=== PATIENT | female | born 1945 | race Caucasian/White ===

== ENCOUNTER 2017-12-19 17:40 | Inpatient (IN) | payer OTHER ==
[2017-12-19] MEDS ORDERED: ONDANSETRON 4 MG/2 ML VIAL ONE (18:36)
[2017-12-19] MEDS ORDERED: FENTANYL CITR 100 MCG/2 ML ONE (18:36)
[2017-12-19] MEDS ORDERED: FAMOTIDINE 20 MG/2 ML VIAL IV ONE (18:37)
[2017-12-19] MEDS ORDERED: PANTOPRAZOLE 40 MG INJ ONE (18:37)
[2017-12-19] MEDS ORDERED: NA CHLORIDE 0.9% 1,000 ML ONE (18:37)
--- NOTE | 2017-12-19 19:24 | RAD REPORT ---
EXAM DESCRIPTION: RAD - Chest Single View - 12/19/2017 7:09 pm CLINICAL HISTORY: Cough, abdominal distension COMPARISON: June 2011 TECHNIQUE: AP portable chest image was obtained 1907 hours . FINDINGS: No focal mass, consolidation or failure finding. Baseline fibrotic lung pattern is present . A few calcified granulomas are seen. Heart and vasculature are normal. No measurable pleural effusi on and no pneumothorax. No acute bony abnormality seen. No acute aortic findings suspected. IMPRESSION: Baseline fibrotic lung pattern. No acute cardiopulmonary process.
[2017-12-19 19:46] LABS: ALT/SGPT 18 U/L (12-78); AST/SGOT 18 U/L (15-37); Albumin 1.7 g/dL (3.4-5.0); Alkaline Phosphatase 156 U/L (45-117); BUN Blood Urea Nitrogen 20 mg/dL (7-18); Bicarbonate 19 mmol/L (21-32); Bilirubin Direct 0.4 mg/dL (0-0.2); Bilirubin Total 0.7 mg/dL (0.2-1.0); Glucose Level 129 mg/dL (74-106); Lipase 41 U/L (73-393); NT PRO-BNP 2939 pg/mL (<125); Potassium 3.2 mmol/L (3.5-5.1); Protein, Total 6.5 g/dL (6.4-8.2); Sodium Level 142 mmol/L (136-145); Troponin (Emerg Dept Use Only) < 0.02 ng/mL (0.0-0.045)
[2017-12-19 19:52] LABS: Magnesium 1.1 mg/dL (1.8-2.4)
--- NOTE | 2017-12-19 20:28 | EDPHYS ---
Physician Documentation [facility] Name: Coreen Chu Age: 72 yrs Sex: Female : 1945 Arrival Date: 12/19/2017 Time: 17:43 Bed 6 Private MD: JAMIE Physician Rashaad Dominique HPI: 12/19 18:22 This 72 yrs old Female presents to ER via Wheelchair with complaints of roberto Fever, Feet Swelling, Wound Check. 18:22 The patient reports fever, that was measured at 100 degrees Fahrenheit. Onset: The roberto symptoms/episode began/occurred 3 day(s) ago. Modifying factors: there are no obvious modifying factors. Associated signs and symptoms: Pertinent positives: abdominal pain. Historical: - Allergies: 17:53 Codeine; aj1 - Home Meds: 17:53 Novolog Sub-Q [Active]; aj1 - PMHx: 17:53 Rheumatoid Arthritis; Diabetes - NIDDM; Hyperlipidemia; Hypertension; chronic pain; aj1 "kidney problems"; - Immunization history:: Flu vaccine is not up to date. - Social history:: Smoking status: Patient uses tobacco products, denies chronic smoking, but will smoke occasionally. - Ebola Screening: : Patient denies travel to an Ebola-affected area in the 21 days before illness onset. ROS: 18:23 Constitutional: Negative for fever, chills, and weight loss, Eyes: Negative for injury, roberto pain, redness, and discharge, ENT: Negative for injury, pain, and discharge, Neck: Negative for injury, pain, and swelling, Cardiovascular: Negative for chest pain, palpitations, and edema, Back: Negative for injury and pain, : Negative for injury, bleeding, discharge, and swelling, Skin: Negative for injury, rash, and discoloration, Neuro: Negative for headache, weakness, numbness, tingling, and seizure, Psych: Negative for depression, anxiety, suicide ideation, homicidal ideation, and hallucinations, Allergy/Immunology: Negative for hives, rash, and allergies, Endocrine: Negative for neck swelling, polydipsia, polyuria, polyphagia, and marked weight changes, Hematologic/Lymphatic: Negative for swollen nodes, abnormal bleeding, and unusual bruising. 18:23 Respiratory: Positive for cough, shortness of breath. 18:23 Abdomen/GI: Positive for abdominal pain, diarrhea, abdominal cramps. 18:23 MS/extremity: Positive for swelling, of the right foot and left foot. Exam: 18:23 Constitutional: This is a well developed, well nourished patient who is awake, alert, roberto and in no acute distress. Head/Face: Normocephalic, atraumatic. Eyes: Pupils equal round and reactive to light, extra-ocular motions intact. Lids and lashes normal. Conjunctiva and sclera are non-icteric and not injected. Cornea within normal limits. Periorbital areas with no swelling, redness, or edema. ENT: Nares patent. No nasal discharge, no septal abnormalities noted. Tympanic membranes are normal and external auditory canals are clear. Oropharynx with no redness, swelling, or masses, exudates, or evidence of obstruction, uvula midline. Mucous membranes moist. Neck: Trachea midline, no thyromegaly or masses palpated, and no cervical lymphadenopathy. Supple, full range of motion without nuchal rigidity, or vertebral point tenderness. No Meningismus. Chest/axilla: Normal chest wall appearance and motion. Nontender with no deformity. No lesions are appreciated. Cardiovascular: Regular rate and rhythm with a normal S1 and S2. No gallops, murmurs, or rubs. Normal PMI, no JVD. No pulse deficits. Back: No spinal tenderness. No costovertebral tenderness. Full range of motion. Female : Normal external genitalia. Skin: Warm, dry with normal turgor. Normal color with no rashes, no lesions, and no evidence of cellulitis. Neuro: Awake and alert, GCS 15, oriented to person, place, time, and situation. Cranial nerves II-XII grossly intact. Motor strength 5/5 in all extremities. Sensory grossly intact. Cerebellar exam normal. Normal gait. Psych: Awake, alert, with orientation to person, place and time. Behavior, mood, and affect are within normal limits. 18:23 Respiratory: mild respiratory distress is noted, Respirations: no acute changes, Breath sounds: decreased breath sounds, that are mild, are located in both bases, rhonchi, + upper airway congestion. Vital Signs: 17:53 BP 126 / 65; Pulse 127; Resp 20; Temp 97.5(TE); Pulse Ox 96% on R/A; Weight 52.62 kg aj1 (R); Height 5 ft. 5 in. (165.10 cm) (R); Pain 10/10; 19:20 BP 122 / 64; Pulse 124; Resp 16; Pulse Ox 94% ; ao 20:07 BP 128 / 74; Pulse 126; Resp 20; Pulse Ox 98% on R/A; ao 21:30 BP 122 / 64; Pulse 123; Resp 20; Pulse Ox 96% on R/A; ao 22:46 BP 119 / 53; Pulse 109; Resp 16; Pulse Ox 96% on R/A; Pain 0/10; ao 17:53 Body Mass Index 19.30 (52.62 kg, 165.10 cm) aj1 MDM: 18:11 [facility]. [facility] 18[facility]25 Data reviewed: vital signs, nurses notes, lab test result(s), EKG, radiologic studies, [facility] scan, plain films. 12/19 18:22 Order name: Basic Metabolic Panel; Complete Time: 20:03 [facility] 12/19 18:22 Order name: CBC with Diff; Complete Time: 20:38 [facility] 12/19 18:22 Order name: LFT's; Complete Time: 20:03 [facility] 12/19 18:22 Order name: Magnesium; Complete Time: 20:03 [facility] 12/19 18:22 Order name: NT PRO-BNP; Complete Time: 20:03 [facility] 12/19 18:22 Order name: PT-INR; Complete Time: 20:38 [facility] 12/19 18:22 Order name: Troponin (emerg Dept Use Only); Complete Time: 20:03 [facility] 12/19 18:22 Order name: Lipase; Complete Time: 20:03 [facility] 12/19 18:22 Order name: TSH; Complete Time: 20:03 [facility] 12/19 18:22 Order name: Lactate; Complete Time: 21:46 [facility] 12/19 18:22 Order name: Procalcitonin; Complete Time: 21:19 [facility] 12/19 18:22 Order name: Urine Culture [facility] 12/19 18:22 Order name: Blood Culture Adult (2) [facility] 12/19 18:22 Order name: Type And Screen [facility] 12/19 18:22 Order name: XRAY Chest (1 view); Complete Time: 20:03 [facility] 12/19 18:22 Order name: CT Chest, Abdomen, Pelvis - W/Contrast: oral for sure, iv iv if possible [facility] 12/19 20:34 Order name: Stool Culture [facility] 12/19 20:34 Order name: Fecal Leukocyte Stain [facility] 12/19 20:34 Order name: CDIFF [facility] 12/19 20:50 Order name: Urine Dipstick--Ancillary (enter results); Complete Time: 21:19 mw2 12/19 21:39 Order name: CT; Complete Time: 21:46 EDMS 12/19 18:22 Order name: EKG; Complete Time: 18:36 [facility] 12/19 18:22 Order name: Cardiac monitoring; Complete Time: 20:03 [facility] 12/19 18:22 Order name: EKG - Nurse/Tech; Complete Time: 18:37 [facility] 12/19 18:22 Order name: IV Saline Lock; Complete Time: 20:03 [facility] 12/19 18:22 Order name: Labs collected and sent; Complete Time: 20:03 [facility] 12/19 18:22 Order name: O2 Per Protocol; Complete Time: 20:02 [facility] 12/19 18:22 Order name: O2 Sat Monitoring; Complete Time: 20:02 [facility] 12/19 18:22 Order name: Urine Dipstick-Ancillary (obtain specimen); Complete Time: 20:48 [facility] 12/19 18:22 Order name: Penn; Complete Time: 20:39 [facility] Administered Medications: 20:00 Drug: NS 0.9% 1000 ml Route: IV; Rate: 1 bolus; Site: right upper arm; ao 22:45 Follow up: IV Status: Completed infusion; IV Intake: 1000ml ao 20:00 Drug: ProTONIX 40 mg Route: IVP; Site: right upper arm; ao 22:15 Follow up: Response: No adverse reaction ao 20:00 Drug: Zofran 4 mg Route: IVP; Site: right upper arm; ao 22:16 Follow up: Response: No adverse reaction ao 20:02 Drug: fentaNYL (PF) 25 mcg Route: IVP; Site: right upper arm; ao 22:15 Follow up: Response: No adverse reaction ao 20:46 Drug: Magnesium Sulfate 2 grams Route: IVPB; Infused Over: 2 hrs; Site: right upper arm;ao 22:44 Follow up: IV Status: Completed infusion; IV Intake: 50ml ao 20:47 Drug: NS 0.9% with KCl 20 mEq/L 1000 ml Route: IV; Rate: 125 ml/hr; Site: right upper ao arm; 22:45 Follow up: IV Status: Completed infusion; Infusion continued upon admission ao 22:00 Drug: Rocephin - (cefTRIAXone) 1 grams Route: IVPB; Infused Over: 30 mins; Site: right ao upper arm; 22:44 Follow up: IV Status: Completed infusion ao 22:08 Drug: Flagyl 500 mg Volume: 100 ml; Route: IVPB; Rate: 200 ml/hr; Infused Over: 30 ao mins; Site: right upper arm; 22:44 Follow up: IV Status: Completed infusion ao 22:43 Drug: levofloxacin 500 mg Volume: 100 ml; Route: IVPB; Infused Over: 60 mins; Site: ao right upper arm; 22:44 Follow up: IV Status: Infusion continued upon admission ao Disposition: 12/19/17 20:27 Hospitalization ordered by Addie Rai for Inpatient Admission. Preliminary diagnosis are Fever, unspecified, Weakness, Unspecified kidney failure, Hypomagnesemia, Hypokalemia, Anemia, unspecified, Cystitis, Left sided colitis with complications - sigmoid, recto sigmoid. - Bed requested for Telemetry/MedSurg (Inpatient). - Status is Inpatient Admission. ao - Condition is Fair. - Problem is new. - Symptoms have improved. UTI on Admission? Yes Signatures: Dispatcher [employer] EDMS Jane Yun RN RN ajRashaad Campo MD MD cha Ortiz, Alex, RN RN ao [place], MyKena mw2 Corrections: (The following items were deleted from the chart) 20:39 20:27 Hospitalization Ordered by Addie Rai MD for Inpatient Admission. Preliminary roberto diagnosis is Fever, unspecified; Weakness; Unspecified kidney failure; Hypomagnesemia; Hypokalemia. Bed requested for Telemetry/MedSurg (Inpatient). Status is Inpatient Admission. Condition is Fair. Problem is new. Symptoms have improved. UTI on Admission? No. roberto 20:50 20:39 12/19/2017 20:27 Hospitalization Ordered by Addie Rai MD for Inpatient roberto Admission. Preliminary diagnosis is Fever, unspecified; Weakness; Unspecified kidney failure; Hypomagnesemia; Hypokalemia; Anemia, unspecified. Bed requested for Telemetry/MedSurg (Inpatient). Status is Inpatient Admission. Condition is Fair. Problem is new. Symptoms have improved. UTI on Admission? No. roberto 20:55 20:50 12/19/2017 20:27 Hospitalization Ordered by Addie Rai MD for Inpatient mw2 Admission. Preliminary diagnosis is Fever, unspecified; Weakness; Unspecified kidney failure; Hypomagnesemia; Hypokalemia; Anemia, unspecified; Cystitis. Bed requested for Telemetry/MedSurg (Inpatient). Status is Inpatient Admission. Condition is Fair. Problem is new. Symptoms have improved. UTI on Admission? Yes. [facility] 21:51 20:55 12/19/2017 20:27 Hospitalization Ordered by Addie Rai MD for Inpatient roberto Admission. Preliminary diagnosis is Fever, unspecified; Weakness; Unspecified kidney failure; Hypomagnesemia; Hypokalemia; Anemia, unspecified; Cystitis. Bed requested for Telemetry/MedSurg (Inpatient). Status is Inpatient Admission. Condition is Fair. Problem is new. Symptoms have improved. UTI on Admission? Yes. mw2 23:53 21:51 12/19/2017 20:27 Hospitalization Ordered by Addie Rai MD for Inpatient ao Admission. Preliminary diagnosis is Fever, unspecified; Weakness; Unspecified kidney failure; Hypomagnesemia; Hypokalemia; Anemia, unspecified; Cystitis; Left sided colitis with complications - sigmoid, recto sigmoid. Bed requested for Telemetry/MedSurg (Inpatient). Status is Inpatient Admission. Condition is Fair. Problem is new. Symptoms have improved. UTI on Admission? Yes. roberto
--- NOTE | 2017-12-19 20:28 | ER ---
Nurse's Notes [facility] Name: Coreen Chu Age: 72 yrs Sex: Female : 1945 Arrival Date: 12/19/2017 Time: 17:43 Bed 6 Private MD: Diagnosis: Fever, unspecified;Weakness;Unspecified kidney failure;Hypomagnesemia;Hypokalemia;Anemia, unspecified;Cystitis;Left sided colitis with complications-sigmoid, recto sigmoid Presentation: 12/19 17:45 Presenting complaint: Patient states: "I'm diabetic and I haven't had my medicine since aj1 last Saturday" Patient sister states "She had surgery on June 18 and she had fungal sepsis and bacterial sepsis and she has these 2 gaping holes, they were doing wound care at the half-way, she's been putting medication on it, but it isn't getting better. She has diarrhea constantly for months. She had a surgery to have a tumor out, but she hasn't had any follow up with the service team leader. The last 2 days she's had fever, and I'm worried that she has a urinary tract infection. And she has swelling in her hands and her feet.". Transition of care: patient was not received from another setting of care. Onset of symptoms is unknown. Risk Assessment: Do you want to hurt yourself or someone else? Patient reports no desire to harm self or others. Initial Sepsis Screen: Does the patient meet any 2 criteria? HR > 90 bpm. No. Patient's initial sepsis screen is negative. Does the patient have a suspected source of infection? Yes: Dysuria/Frequency/Urgency/UTI Skin breakdown/wound. Care prior to arrival: None. 17:45 Method Of Arrival: Wheelchair aj1 17:55 Acuity: HELENA 2 aj1 Triage Assessment: 17:53 General: Appears in no apparent distress. comfortable, Behavior is calm, cooperative, aj1 appropriate for age. Pain: Complains of pain in buttocks, right foot and left foot Pain currently is 10 out of 10 on a pain scale. Neuro: Level of Consciousness is awake, alert, obeys commands. Cardiovascular: Patient's skin is warm and dry. Respiratory: Airway is patent Respiratory effort is even, unlabored, Respiratory pattern is regular, symmetrical. Historical: - Allergies: 17:53 Codeine; aj1 - Home Meds: 17:53 Novolog Sub-Q [Active]; aj1 - PMHx: 17:53 Rheumatoid Arthritis; Diabetes - NIDDM; Hyperlipidemia; Hypertension; chronic pain; aj1 "kidney problems"; - Immunization history:: Flu vaccine is not up to date. - Social history:: Smoking status: Patient uses tobacco products, denies chronic smoking, but will smoke occasionally. - Ebola Screening: : Patient denies travel to an Ebola-affected area in the 21 days before illness onset. Screenin:01 Abuse screen: Denies threats or abuse. Denies injuries from another. Nutritional sg screening: No deficits noted. Tuberculosis screening: No symptoms or risk factors identified. Never had TB. Fall Risk None identified. Assessment: 18:58 General: Appears in no apparent distress. well groomed, well developed, well nourished, sg Behavior is calm, cooperative, appropriate for age. Pain: Complains of pain in left foot and right foot and buttocks Quality of pain is described as aching, throbbing. Neuro: Level of Consciousness is awake, alert, obeys commands, Oriented to person, place, time, Pipeline Welder are equal bilaterally Moves all extremities. Full function Speech is normal, Facial symmetry appears normal. Cardiovascular: Edema is 1+ to left foot, left toes, right foot and right toes. Respiratory: Airway is patent Respiratory effort is even, unlabored, Respiratory pattern is regular, symmetrical. GI: No signs and/or symptoms were reported involving the gastrointestinal system. : Reports incontinence, since 3-4 weeks. EENT: No signs and/or symptoms were reported regarding the EENT system. Derm: Skin is intact, is fragile, is thin, Skin is dry, Skin is pale, Skin temperature is cool Bruising that is green, yellow, on right foot and left foot. Musculoskeletal: Circulation, motion, and sensation intact. Range of motion: limited in all extremities. 19:20 Reassessment: Zechariah at bedside for IV placement. ak1 19:20 General: Appears in no apparent distress. comfortable, well groomed, well developed, ao well nourished, Behavior is calm, cooperative, appropriate for age. Pain:. Neuro: Level of Consciousness is awake, alert, obeys commands, Oriented to person, place, time, Pipeline Welder are equal bilaterally Moves all extremities. Full function Speech is normal, Facial symmetry appears normal. Cardiovascular: Capillary refill < 3 seconds Patient's skin is warm and dry. Respiratory: Airway is patent Respiratory effort is even, unlabored, Respiratory pattern is regular, symmetrical. GI: Abdomen is non-distended. : EENT: No signs and/or symptoms were reported regarding the EENT system. Derm: No signs and/or symptoms reported regarding the dermatologic system. Musculoskeletal: No signs and/or symptoms reported regarding the musculoskeletal system. 19:55 Reassessment: Started 22 G right FA. ao Vital Signs: 17:53 BP 126 / 65; Pulse 127; Resp 20; Temp 97.5(TE); Pulse Ox 96% on R/A; Weight 52.62 kg aj1 (R); Height 5 ft. 5 in. (165.10 cm) (R); Pain 10/10; 19:20 BP 122 / 64; Pulse 124; Resp 16; Pulse Ox 94% ; ao 20:07 BP 128 / 74; Pulse 126; Resp 20; Pulse Ox 98% on R/A; ao 21:30 BP 122 / 64; Pulse 123; Resp 20; Pulse Ox 96% on R/A; ao 22:46 BP 119 / 53; Pulse 109; Resp 16; Pulse Ox 96% on R/A; Pain 0/10; ao 17:53 Body Mass Index 19.30 (52.62 kg, 165.10 cm) aj ED Course: 17:43 Patient arrived in ED. as 17:53 Arm band placed on Patient placed in an exam room. aj1 17:55 Triage completed. aj1 18:10 Rashaad Dominique MD is Attending Physician. roberto 18:26 Teo Montes, RN is Primary Nurse. sg 18:37 EKG done, by ED staff, reviewed by Rashaad Dominique MD. 3 18:46 Radiology exam delayed due to IV insertion attempt and/or patient not having ls3 appropriate IV at this time. 18:58 Missed attempt(s): 24 gauge in right forearm. Bleeding controlled, band aid applied, sg catheter tip intact. 19:09 XRAY Chest (1 view) In Process Unspecified. EDMS 20:26 Addie Rai MD is Hospitalizing Provider. roberto 20:39 Penn cath inserted, using sterile technique, 16 Fr., by me, balloon inflated, to ak1 gravity drainage, urine specimen collected. Patient tolerated well. 21:00 Cleaned of incontinence. Linen changed. ak1 21:[address] via stretcher. vm2 21:15 CT completed. Patient tolerated procedure well. Patient moved back from CT. vm2 21:35 Cleaned of incontinence. Linen changed. ak1 22:47 Patient has correct armband on for positive identification. Fall risk band placed. Bed ao in low position. 23:52 No provider procedures requiring assistance completed. Patient admitted, IV remains in ao place. Administered Medications: 20:00 Drug: NS 0.9% 1000 ml Route: IV; Rate: 1 bolus; Site: right upper arm; ao 22:45 Follow up: IV Status: Completed infusion; IV Intake: 1000ml ao 20:00 Drug: ProTONIX 40 mg Route: IVP; Site: right upper arm; ao 22:15 Follow up: Response: No adverse reaction ao 20:00 Drug: Zofran 4 mg Route: IVP; Site: right upper arm; ao 22:16 Follow up: Response: No adverse reaction ao 20:02 Drug: fentaNYL (PF) 25 mcg Route: IVP; Site: right upper arm; ao 22:15 Follow up: Response: No adverse reaction ao 20:46 Drug: Magnesium Sulfate 2 grams Route: IVPB; Infused Over: 2 hrs; Site: right upper arm;ao 22:44 Follow up: IV Status: Completed infusion; IV Intake: 50ml ao 20:47 Drug: NS 0.9% with KCl 20 mEq/L 1000 ml Route: IV; Rate: 125 ml/hr; Site: right upper ao arm; 22:45 Follow up: IV Status: Completed infusion; Infusion continued upon admission ao 22:00 Drug: Rocephin - (cefTRIAXone) 1 grams Route: IVPB; Infused Over: 30 mins; Site: right ao upper arm; 22:44 Follow up: IV Status: Completed infusion ao 22:08 Drug: Flagyl 500 mg Volume: 100 ml; Route: IVPB; Rate: 200 ml/hr; Infused Over: 30 ao mins; Site: right upper arm; 22:44 Follow up: IV Status: Completed infusion ao 22:43 Drug: levofloxacin 500 mg Volume: 100 ml; Route: IVPB; Infused Over: 60 mins; Site: ao right upper arm; 22:44 Follow up: IV Status: Infusion continued upon admission ao Intake: 22:44 IV: 50ml; Total: 50ml. ao 22:45 IV: 1000ml; Total: 1050ml. ao Outcome: 20:27 Decision to Hospitalize by Provider. roberto 23:52 Admitted to Med/surg accompanied by nurse, room 416, Report called to Primary Nurse ao 23:52 Condition: stable 23:52 Instructed on the need for admit. 23:53 Patient left the ED. ao Signatures: Dispatcher [employer] EDJane Ocasio RN RN Teo Syed RN Rashaad Burkett MD MD cha Martinez, Amelia as Krenek, Amber RN RN [email or web address] Shaun Ballard RN RN Mandy White Yocasta Cintron 3 Srinivasan Rivas 3
[2017-12-19 20:32] LABS: Absolute Lymphocytes (CBC) 2.9 K/uL (0.7-4.9); Absolute Monocytes 0.8 K/uL (0.1-1.3); Absolute Neutrophil 7.8 K/uL (1.8-8.0); Basophils % 0.1 % (0-1.3); Eosinophils % 0.2 % (0-4.4); Hematocrit 28.3 % (36.0-45.0); MCH 29.6 pg (27.0-35.0); MCV 93.3 fL (80-100); MPV 8.1 fL (7.6-11.3); Monocytes % 6.7 % (3.3-12.3); RBC Red Blood Cell Count 3.03 M/uL (3.86-4.86)
[2017-12-19 20:33] LABS: Protime INR 1.18
[2017-12-19] MEDS ORDERED: NS KCL 20MEQ 1,000 ML IV ONE (20:42)
[2017-12-19] MEDS ORDERED: Magnesium Sulfate 2gm IVPB 2 G/50 ML BAG IV ONE (20:43)
[2017-12-19 20:59] LABS: Urine Blood 2+ (NEG); Urine Glucose NEGATIVE (NEG); Urine Protein 3+ (NEG); Urine Specific Gravity 1.025 (1.005-1.030); Urine pH 6.5 (5.0-7.0)
--- NOTE | 2017-12-19 21:39 | RAD REPORT ---
EXAM DESCRIPTION: CT - Chest Abdomen Pelvis W Cont - 12/19/2017 9:11 pm CLINICAL HISTORY: Cough, chest pain, abdomen pain COMPARISON: Chest films same date TECHNIQUE: Following dynamic enhancement using 100 milliliters nonionic IV contrast, axial imaging o f the chest, abdomen and pelvis was performed. Biphasic technique was utilized through the abdomen. Oral contrast was administered. All CT scans are performed using dose optimization technique as appropriate and may include automated exposure control or mA/KV adjustment according to patient size. FINDINGS: Fibrotic lung changes are present. No focal infiltrate or mass. Calcified granuloma seen p osterior mid right lung field. No pleural effusion, pleural thickening or pneumothorax. No significan t aortic or pulmonary arterial tree finding. Mediastinal and hilar regions show no mass or abnormal l ymphadenopathy. No chest wall mass or axillary lymphadenopathy. Mediastinal and hilar granulomatous c alcifications are present. The liver, spleen and pancreas show no suspicious findings. Cholecystectomy clips are present. No sonya iary tree dilatation. Symmetric renal function is seen with no mass or hydronephrosis. No pyelonephri tis or acute renal parenchymal process seen. Hemphill of the ureter are more prominent than typically se en. There is no significant delay or asymmetry of function. Urinary bladder is contracted around a Fo pavel catheter. Air within the lumen is probably from the catheter placement. Pelvic floor assessment i s limited due to the dense spray artifact from the right hip prosthesis. No gastric dilatation or gastric wall thickening seen. Gastric assessment is limited due to the limit ed amount contrast or content within the lumen of the stomach. No dilated small bowel loops. No acute appendicitis findings. Hemphill of the transverse colon are mildly prominent. This may be a peristalsis artifact. Wall thickening or edema is evident in the sigmoid colon and rectum. There is edema and st randing in the presacral fatty tissues. There is stranding along the posterior and left lateral al n of the lower sacrum and coccyx. No air or foreign body seen. Disc and bony degenerative changes are present. No free air or pneumatosis. No destructive bone process seen. Dense arterial tree calcifications are present. IMPRESSION: No significant CT chest finding. Wall thickening and edema of the rectum and sigmoid colon with significant edema and stranding in the presacral fatty tissues. Rectosigmoid colitis is suspected. Patient gives a history of some sort of GI mass that was biopsied but not resected or fully treated. Malignancy of the rectum cannot be excluded. Hemphill of each ureter are thicker and more prominent than usually seen. Ureteritis is certainly a poss ibility. No pyelonephritis seen. Urinary bladder cannot be assessed. Bladder is contracted around a Penn catheter. Prosser artifact fro m the hip limits further the ability to assess the bladder. Cystitis is certainly a possibility.
[2017-12-19] MEDS ORDERED: CEFTRIAXONE/SWI 1gm 1 GM/10 ML SYR ONE (21:58)
[2017-12-19] MEDS ORDERED: METRONIDAZOLE 500mg IVPB 500 MG/100 ML BAG IV ONE (21:58)
[2017-12-19] MEDS ORDERED: Levofloxacin500mg IV 500 MG/100 ML BAG IV ONE (22:15)
--- NOTE | 2017-12-19 22:41 | P.HP ---
Certification for Inpatient Patient admitted to: Inpatient With expected LOS: >2 Midnights Practitioner: I am a practitioner with admitting privileges, knowledge of patient current condition, hospital course, and medical plan of care. Services: Services provided to patient in accordance with Admission requirements found in Title 42 Section 412.3 of the Code of Federal Regulations Patient History Date of Service: 12/19/17 Reason for admission: Rectosigmoid colitis History of Present Illness: Ms Chu is a 72-year-old woman with history of hypertension, diabetes mellitus types 2, who in May of this year had a colonic mass removed in [place]. Since so she has been having diarrhea. Her surgical wound never healed and they are still open. The patient denied any nausea, vomiting or diarrhea. No history of fever or chills. Lab work significantly abnormal, remarkable for elevated WBC count 11.4 K hypomagnesemia 1.[address] abdomen and pelvis consistent with signs of rectosigmoid colitis Allergies No Known Allergies Allergy (Unverified 02/12/12 21:51) Home medications list reviewed: Yes - Past Medical/Surgical History -: Diabetes mellitus -: Hypertension -: colonic tumor resection - Family History Family History: Reviewed- Non-Contributory - Social History Smoking Status: Never smoker Alcohol use: No Caffeine use: Yes Place of Residence: Home Review of Systems 10-point ROS is otherwise unremarkable Physical Examination - Physical Exam General: Alert, In no apparent distress HEENT: Atraumatic, PERRLA, Mucous membr. moist/pink, EOMI, Sclerae nonicteric Neck: Supple, 2+ carotid pulse no bruit, No LAD, Without JVD or thyroid abnormality Respiratory: Clear to auscultation bilaterally, Normal air movement Cardiovascular: Regular rate/rhythm, Normal S1 S2 Gastrointestinal: No tenderness, Hyperactive Musculoskeletal: No tenderness Integumentary: No rashes, Skin lesion (Surgical wounds still open in her abdomen ) Neurological: Normal gait, Normal speech, Normal strength at 5/5 x4 extr, Normal tone, Normal affect Lymphatics: No axilla or inguinal lymphadenopathy - Studies Laboratory Data (last 24 hrs) 12/19/17 19:50: PT 14.0 H, INR 1.18 12/19/17 19:50: WBC 11.4 H, Hgb 9.0 L, Hct 28.3 L, Plt Count 382 12/19/17 18:55: Sodium 142, Potassium 3.2 L, BUN 20 H, Creatinine 1.30, Glucose 129 H, Magnesium 1.1 L*, Total Bilirubin 0.7, AST 18, ALT 18, Alkaline Phosphatase 156 H, Lipase 41 L Assessment and Plan - Problems (Diagnosis) (1) Colitis Current Visit: Yes Status: Acute (2) Hypertension Current Visit: Yes Status: Acute (3) Diabetes mellitus Current Visit: Yes Status: Acute - Advance Directives Does patient have a Living Will: No Does patient have a Durable POA for Healthcare: No
[2017-12-20] MEDS: NA CHLORIDE 0.9% 1,000 ML IV SCH ×3 (00:24→20:02)
[2017-12-20] MEDS ORDERED: ONDANSETRON 4 MG/2 ML VIAL IV PRN (00:24)
[2017-12-20 01:21] VITALS: BMI 19.3
[2017-12-20] MEDS: TRAMADOL HCL 50 MG TAB PO PRN ×2 (02:07→16:48)
[2017-12-20 07:11] LABS: Absolute Lymphocytes (CBC) 2.4 K/uL (0.7-4.9); Absolute Monocytes 0.6 K/uL (0.1-1.3); Absolute Neutrophil 2.5 K/uL (1.8-8.0); Basophils % 0.2 % (0-1.3); Eosinophils % 1.2 % (0-4.4); Hematocrit 21.1 % (36.0-45.0); Lymphocytes % 43.4 % (15.3-44.8); MCH 29.9 pg (27.0-35.0); MCV 93.5 fL (80-100); MPV 8.1 fL (7.6-11.3); Monocytes % 10.3 % (3.3-12.3); RBC Red Blood Cell Count 2.25 M/uL (3.86-4.86)
--- NOTE | 2017-12-20 07:29 | EKG ---
Test Date: 2017-12-19 Test Time: 18:33:16 Classroom Technology Technician: USHA MEASUREMENT RESULTS: Intervals: Rate: 126 IA: 124 QRSD: 86 QT: 310 QTc: 448 [place]: P: 89 IA: 124 QRS: 40 T: 87 INTERPRETIVE STATEMENTS: Sinus tachycardia with fusion complexes Nonspecific ST and T wave abnormality Abnormal ECG Compared to ECG 02/12/2012 22:02:48 Fusion complex(es) now present ST (T wave) deviation now present Sinus rhythm no longer present Electronically Signed On 12-20-17 07:27:39 CDT by Ambrose Betancur
[2017-12-20] MEDS: INSULIN -REGULAR HUMAN 50 UNIT/0.5 ML ML SQ SCH ×4 (07:30→20:30)
[2017-12-20 07:42] LABS: Magnesium 1.5 mg/dL (1.8-2.4)
[2017-12-20 07:56] LABS: Potassium 2.8 mmol/L (3.5-5.1)
[2017-12-20] MEDS ORDERED: INFLUENZA VACCINE (for 3y+) 0.5 ML DOSE IMVAC ONE (08:00)
[2017-12-20] MEDS: METRONIDAZOLE 500mg IVPB 500 MG/100 ML BAG IV SCH ×2 (08:56→16:49)
[2017-12-20] MEDS: CIPROFLOXACIN 400mg IV 400 MG/200 ML BAG IV SCH ×2 (08:56→20:00)
[2017-12-20] MEDS: KCL 20 MEQ/100 mL IVPB 20 MEQ/100 ML BAG IV SCH ×2 (08:56→11:30)
--- NOTE | 2017-12-20 13:46 | EKG ---
Test Date: 2017-12-20 Test Time: 09:34:01 Sloop Captain: DOLORES MEASUREMENT RESULTS: Intervals: Rate: 88 WI: 132 QRSD: 98 QT: 384 QTc: 464 [place]: P: 60 WI: 132 QRS: 33 T: 78 INTERPRETIVE STATEMENTS: Sinus rhythm with frequent premature ventricular complexes and premature atrial complexes Otherwise normal ECG Compared to ECG 12/19/2017 18:33:16 Atrial premature complex(es) now present Ventricular premature complex(es) now present Sinus tachycardia no longer present Fusion complex(es) no longer present ST (T wave) deviation no longer present Electronically Signed On 12-20-17 13:45:19 CDT by Ambrose Betancur
[2017-12-20] MEDS ORDERED: NA CHLORIDE 0.9% 250 ML ONE ×2 (14:07→19:43)
[2017-12-20] MEDS ORDERED: Magnesium Sulfate 2gm IVPB 2 G/50 ML BAG IV ONE (15:00)
--- NOTE | 2017-12-20 17:58 | P.PN ---
Subjective Date of Service: 12/20/17 Chief Complaint: Rectosigmoid colitis In seen and examined at bedside. Sister at bedside. Case discussed with nursing staff. Patient reports feeling better. Abdominal pain has now almost resolved and she is hungry. She would really like to eat. Review of Systems As noted above Physical Examination - Vital Signs Temperature: 97.4 F Blood Pressure: 134/62 Pulse: 88 Respirations: 18 Pulse Ox (%): 97 - Physical Exam General: Alert, In no apparent distress, Oriented x3 HEENT: Atraumatic, PERRLA, EOMI Neck: Supple, JVD not distended Respiratory: Clear to auscultation bilaterally, Normal air movement Cardiovascular: Regular rate/rhythm, Normal S1 S2 Gastrointestinal: Hyperactive, Tenderness (Mild tenderness) Musculoskeletal: No tenderness Integumentary: Skin lesion (Open wound on abdomen) Neurological: Normal speech, Normal tone, Normal affect - Studies Laboratory Data (last 24 hrs) 12/19/17 19:50: PT 14.0 H, INR 1.18 12/19/17 19:50: WBC 11.4 H, Hgb 9.0 L, Hct 28.3 L, Plt Count 382 12/19/17 18:55: Sodium 142, Potassium 3.2 L, BUN 20 H, Creatinine 1.30, Glucose 129 H, Magnesium 1.1 L*, Total Bilirubin 0.7, AST 18, ALT 18, Alkaline Phosphatase 156 H, Lipase 41 L Assessment And Plan - Current Problems (Diagnosis) (1) Diarrhea Current Visit: Yes Status: Acute Plan: Per sister and patient, patient underwent a colon resection for a colon tumor removal on June 18, 2017 and. This was done and [place]. From the hospital, patient went to rehab/skilled nursing in June of 2017. Her stay was complicated by fungal sepsis and bacterial sepsis. She was in the hospital in and out from the rehab center in [place]. Patient just recently moved to [place] 1 week ago to be with her sister as she thought she was not getting adequate care at her rehab center over there. Per patient and sister, she has had constant diarrhea ever since May, prior to her surgery. She was also noted to be C. diff positive in the rehab back in July. Stool sample sent for C. diff testing here, positive for C. diff. Over the/ parasite testing is still pending. She continues to be on IV Flagyl, will continue. Monitor stools Qualifiers: Diarrhea type: presumed infectious Qualified Code(s): R19.7 - Diarrhea, unspecified (2) Colitis Onset Date: 12/20/17 Current Visit: Yes Status: Acute Plan: Colitis noted on imaging of the abdomen. Patient NPO, continue IV fluids Continue IV antibiotics (3) Diabetes mellitus Onset Date: 12/20/17 Current Visit: Yes Status: Acute Plan: Accu-Cheks and sliding scale insulin. Will adjust insulin units as needed. (4) Hypertension Onset Date: 12/20/17 Current Visit: Yes Status: Acute Plan: Stable, continue home medications. (5) Anemia Current Visit: Yes Status: Acute Plan: Patient with hemoglobin of 6.8 this morning. She will get 2 units PRBCs. Posttransfusion hemoglobin check. Will continue to monitor. No evidence of overt bleeding at this time. (6) Hypokalemia Current Visit: Yes Status: Acute Plan: Repleted per hypokalemia protocol Check a.m. labs - Plan Her sister, she would like to get help on disposition on this patient. She would like to consider longterm versus home health. Will put physical therapy consult for evaluation. Social work consult.
[2017-12-20] MEDS ORDERED: POTASSIUM 25 MEQ EFFERV TAB PO ONE (19:23)
[2017-12-20] MEDS: JUVEN PACKET PO SCH (20:02)
--- NOTE | 2017-12-20 21:49 | RAD REPORT ---
EXAM DESCRIPTION: RAD - Lumbar Spine 3 Views - 12/20/2017 5:54 pm CLINICAL HISTORY: Back pain FINDINGS: Cement has been placed into fractures involving T12, L1 and L3 vertebral bodies. Mild to moderate compression fracture involves the L5 vertebral body. It may be subacute. MRI would b e helpful for confirmation if clinically indicated. Mild compression fracture involves the L2 vertebral body. It has more of the appearance of being commercial appraiser franky than acute appearance. The bones are osteoporotic. No dislocation is seen
[2017-12-21] MEDS: NA CHLORIDE 0.9% 1,000 ML IV SCH ×3 (01:24→20:55)
[2017-12-21] MEDS: METRONIDAZOLE 500mg IVPB 500 MG/100 ML BAG IV SCH ×3 (01:24→16:43)
[2017-12-21] MEDS ORDERED: VANCOMYCIN 1 GM in NA CHLORIDE 0.9% 250 ML IVPB ONE (02:00)
[2017-12-21] MEDS ORDERED: NA CHLORIDE 0.9% 250 ML ONE (02:37)
[2017-12-21] MEDS ORDERED: VANCOMYCIN 1 GM/VIAL ONE (02:37)
[2017-12-21 04:57] LABS: Hematocrit 30.2 % (36.0-45.0)
[2017-12-21 05:04] LABS: Magnesium 1.7 mg/dL (1.8-2.4); Potassium 3.5 mmol/L (3.5-5.1)
[2017-12-21] MEDS ORDERED: POTASSIUM CL SA 10 MEQ TAB PO ONE (05:31)
[2017-12-21] MEDS ORDERED: MAGNESIUM SULFATE 1 gm IVPB 1 GM/100 ML BAG IV ONE (05:32)
[2017-12-21] MEDS: INSULIN -REGULAR HUMAN 50 UNIT/0.5 ML ML SQ SCH ×4 (07:30→20:55)
[2017-12-21] MEDS: JUVEN PACKET PO SCH ×3 (08:36→21:00)
[2017-12-21] MEDS: CIPROFLOXACIN 400mg IV 400 MG/200 ML BAG IV SCH ×2 (09:19→20:54)
[2017-12-21] MEDS ORDERED: PROCHLORPERAZINE 5 MG TAB PO PRN (12:48)
--- NOTE | 2017-12-21 18:03 | PN ---
History: Currently, the patient lying in bed. She looks comfortable. She is feeling lousy. She flaherty s no chest pain, but she has abdominal pain. There was no nausea or vomiting earlier. Appetite is p oor. Physical Examination: Vital Signs: Currently, blood pressure is 126/90, respiratory rate 20, pulse 95, temperature 97.9. She is saturating 97 on room air. General: She is alert and oriented. Looks cachectic. Without any distress. HEENT: Atraumatic, normocephalic. PERRLA. Oral mucosa is dry. Neck: Supple. No JVD. No carotid bruits. Chest: Clear to auscultation with good air entry. Heart: Regular rate and rhythm. S1, S2 normal. No gallop or murmur. Abdomen: Hyperactive with diffuse mild tenderness. There is no rebound or guarding. Extremities: No clubbing, cyanosis, or edema. No calf tenderness. Neurologic: Grossly intact. Laboratory Data: Today showed CBC with a hemoglobin 10.3. Chemistry within normal except for carbon dioxide of 19 and chloride of 117. GFR of 52, glucose 113, calcium 7.8, magnesium 1.7. Assessment And Plan: 1.Diarrhea, secondary to Clostridium difficile colitis. The patient currently on IV Flagyl. I will add oral vancomycin 125 mg every 6 hours. The patient had history of colon resection on June 18, with prolonged [facility]. Two samples for ova and parasite stil l pending. 2.Colitis secondary to Clostridium difficile, on imaging. The patient is still on fluids, IV antibi otic with Flagyl, and we will add oral vancomycin. She is as well on Cipro for the colitis. 3.Diabetes mellitus. The patient on insulin sliding scale. Her glucose in the range of 138 to 225, probably worse as patient started on a soft mechanical diet. I will resume her Actos and NovoLog 12 units IV for her home medications. 4.Hypertension, well controlled. Continue home medication. 5.Anemia, most likely secondary to gastrointestinal bleed, with transfusion hemoglobin up to 10.3, b ut patient will not be candidate for colonoscopy or EGD at this point given her active infection. 6.Hypokalemia, replaced. 7.No deep vein thrombosis prophylaxis, most likely due to gastrointestinal bleed. MARYLU/ANISHA Voice ID: [id number] Report ID: [id number]
[2017-12-21] MEDS: VANCOMYCIN ORAL SOLN 250 MG/5 ML OSYR PO SCH (18:14)
[2017-12-22] MEDS: VANCOMYCIN ORAL SOLN 250 MG/5 ML OSYR PO SCH ×4 (00:38→17:38)
[2017-12-22] MEDS: METRONIDAZOLE 500mg IVPB 500 MG/100 ML BAG IV SCH ×2 (00:39→09:58)
[2017-12-22] MEDS: NA CHLORIDE 0.9% 1,000 ML IV SCH ×2 (01:54→11:31)
[2017-12-22 07:06] LABS: Absolute Lymphocytes (CBC) 2.3 K/uL (0.7-4.9); Absolute Monocytes 0.9 K/uL (0.1-1.3); Absolute Neutrophil 4.2 K/uL (1.8-8.0); Basophils % 0.2 % (0-1.3); Eosinophils % 0.9 % (0-4.4); Hematocrit 30.5 % (36.0-45.0); Lymphocytes % 31.3 % (15.3-44.8); MCV 91.7 fL (80-100); MPV 7.8 fL (7.6-11.3); Monocytes % 11.7 % (3.3-12.3); RBC Red Blood Cell Count 3.32 M/uL (3.86-4.86)
[2017-12-22] MEDS: INSULIN LISPRO 100 UNIT/1 ML SQ SCH ×3 (07:30→16:30)
[2017-12-22] MEDS: INSULIN -REGULAR HUMAN 50 UNIT/0.5 ML ML SQ SCH ×4 (07:30→20:41)
[2017-12-22 07:31] LABS: Albumin 1.4 g/dL (3.4-5.0); Bilirubin Total 0.5 mg/dL (0.2-1.0); Magnesium 1.8 mg/dL (1.8-2.4); Potassium 3.5 mmol/L (3.5-5.1); Protein, Total 5.2 g/dL (6.4-8.2)
[2017-12-22] MEDS ORDERED: POTASSIUM 25 MEQ EFFERV TAB PO ONE (09:00)
[2017-12-22] MEDS ORDERED: MAGNESIUM SULFATE 1 gm IVPB 1 GM/100 ML BAG IV ONE (09:00)
[2017-12-22] MEDS: JUVEN PACKET PO SCH ×2 (09:00→20:37)
[2017-12-22] MEDS: CIPROFLOXACIN 400mg IV 400 MG/200 ML BAG IV SCH ×2 (09:58→20:36)
[2017-12-22] MEDS: PIOGLITAZONE 15 MG TAB PO SCH (09:58)
[2017-12-22] MEDS: TRAMADOL HCL 50 MG TAB PO PRN ×2 (12:29→20:37)
[2017-12-22] MEDS ORDERED: HYDRALAZINE HCL 20 MG/ML VIAL IV PRN (13:15)
[2017-12-22] MEDS ORDERED: INFLUENZA VACCINE (for 3y+) 0.5 ML DOSE IMVAC ONE (16:00)
--- NOTE | 2017-12-22 18:49 | PN ---
Subjective: Currently, the patient is lying in bed. She looks comfortable. She continues to have a bdominal pain. There was no bowel movement anymore. No diarrhea. She had no nausea, no vomiting wh en she could not tolerate food. Temperature maximum was at 98.7. There is no family at the bedside. She wants a PICC line instead of her IV. Review of Systems: Otherwise negative. Objective: Vital Signs: Blood pressure 144/67, respiratory rate 18, pulse 122, temperature 98.5. General: The patient is alert, oriented x3. Does not look in any distress. HEENT: Atraumatic, normocephalic. PERRLA. Oral mucosa is moist. Neck: Supple. No JVD. No carotid bruits. Chest: Clear to auscultation. Good air entry. Heart: Regular rate and rhythm. S1, S2 normal. No gallop. Tachy. Abdomen: Soft with diffuse tenderness to palpation. There is no guarding or rebound. Extremities: No clubbing, cyanosis, or edema. Diffuse bruising noted, but there is no calf tenderne ss. Neurologic: Grossly intact. Laboratory Data: Today showed CBC with a hemoglobin of 10.3, which is stable from yesterday. Normal platelet. Normal white blood cells. Chemistry within normal except for GFR of 71, chloride 116, ca rbon dioxide of 20, glucose in the range of 92-256. Assessment And Plan: 1.Clostridium difficile colitis. Diarrhea much better today since we started the patient on oral va ncomycin yesterday. Continue with that. The patient already on IV Flagyl as well. The patient has extensive history of hospitalization, post colectomy done in June 18, 2017 in [place]. The [facility]. Her stool ova and parasite still pending, but her fecal leukocyte stai n were negative. 2.UTI: The patient's urine was positive for Klebsiella pneumoniae and E. coli, sensitivity to Cipro for both organisms "so will continue Cipro for now.". 3.Wound culture. Abdominal wound culture was positive for Klebsiella pneumoniae and MRSA. Again, K lebsiella pneumoniae is sensitive to Cipro. We will continue with that. I will discontinue IV Flagy l and add Bactrim to cover her MRSA. The patient already on oral vancomycin. Would also cover MRSA. 4.Diabetes mellitus. Her glucose in the range of 92-236. She is back on her home medications with Actos and NovoLog 12 units before meals. 5.Hypertension. Well controlled today. Continue home medication. We will start p.r.n. hydralazine . 6.Anemia, most likely secondary to gastrointestinal bleed. H and H stable since patient received tr ansfusion on Saturday. The patient will need EGD and colonoscopy down the road when her colitis resolv ed. 7.Hypokalemia, replaced. 8.Deep vein thrombosis prophylaxis. The patient has GI bleed. 9.Keep patient on clear liquid diet for now. MARYLU/ANISHA Voice ID: [id number] Report ID: [id number]
[2017-12-22] MEDS: SMZ./TMP. 800/160 MG TABLET PO SCH (20:37)
[2017-12-23] MEDS: VANCOMYCIN ORAL SOLN 250 MG/5 ML OSYR PO SCH ×4 (00:09→17:17)
[2017-12-23] MEDS: TRAMADOL HCL 50 MG TAB PO PRN (02:35)
[2017-12-23] MEDS: NA CHLORIDE 0.9% 1,000 ML IV SCH ×3 (02:43→18:24)
[2017-12-23 06:31] LABS: Magnesium 1.8 mg/dL (1.8-2.4); Potassium 3.9 mmol/L (3.5-5.1)
[2017-12-23] MEDS: INSULIN -REGULAR HUMAN 50 UNIT/0.5 ML ML SQ SCH ×4 (07:30→21:00)
[2017-12-23] MEDS ORDERED: MAGNESIUM SULFATE 1 gm IVPB 1 GM/100 ML BAG IV ONE (08:07)
[2017-12-23] MEDS ORDERED: POTASSIUM CL SA 10 MEQ TAB PO ONE (08:08)
[2017-12-23] MEDS: JUVEN PACKET PO SCH ×3 (09:00→21:49)
[2017-12-23] MEDS: CIPROFLOXACIN 400mg IV 400 MG/200 ML BAG IV SCH (09:42)
[2017-12-23] MEDS: SMZ./TMP. 800/160 MG TABLET PO SCH ×2 (09:43→21:49)
[2017-12-23] MEDS: INSULIN LISPRO 100 UNIT/1 ML SQ SCH ×3 (09:43→16:30)
[2017-12-23] MEDS: PIOGLITAZONE 15 MG TAB PO SCH (09:43)
[2017-12-23] MEDS: VANCOMYCIN/NS 1 gm 1 GM/250 ML BAG IV SCH (13:00)
--- NOTE | 2017-12-23 17:39 | P.PN ---
Subjective Date of Service: 12/24/17 Chief Complaint: Rectosigmoid colitis In seen and examined at bedside. No family at bedside. Case discussed with nursing staff. Patient reports feeling better. Abdominal pain has now almost resolved and she is tolerating clear liquid diet.. Review of Systems As noted above Physical Examination - Vital Signs Temperature: 97.9 F Blood Pressure: 93/53 Pulse: 110 Respirations: 16 Pulse Ox (%): 91 - Physical Exam General: Alert, In no apparent distress, Oriented x3 HEENT: Atraumatic, PERRLA, EOMI Neck: Supple, JVD not distended Respiratory: Clear to auscultation bilaterally, Normal air movement Cardiovascular: Regular rate/rhythm, Normal S1 S2 Gastrointestinal: Normal bowel sounds, No tenderness, Other (Surgical wound on abdomen, draining) Musculoskeletal: No tenderness Integumentary: No rashes Neurological: Normal speech, Normal tone, Normal affect - Studies Microbiology Data (last 24 hrs): 12/19/17 19:50 Blood - Blood Aerobic Blood Culture - Final Staph Hominis 12/19/17 19:50 Blood - Blood Gram Stain - Final 12/19/17 19:50 Blood - Blood Anaerobic Blood Culture - Final Staphylococcus Hominis 12/19/17 19:50 Blood - Blood Gram Stain - Final Medications List Reviewed: Yes Assessment And Plan - Current Problems (Diagnosis) (1) Diarrhea Current Visit: Yes Status: Acute Plan: Infectious, Clostridium difficile positive diarrhea. Much improved diarrhea since patient has been on oral vancomycin. We will continue oral vancomycin and IV Flagyl. Still pending ova and parasite studies. Qualifiers: Diarrhea type: infectious Qualified Code(s): A09 - Infectious gastroenteritis and colitis, unspecified (2) Colitis Onset Date: 12/20/17 Current Visit: Yes Status: Acute Plan: Colitis noted on imaging of the abdomen. On a clear liquid diet, advance diet as tolerated. Continue IV antibiotics Will likely need EGD/colonoscopy outpatient (3) Diabetes mellitus Onset Date: 12/20/17 Current Visit: Yes Status: Acute Plan: Accu-Cheks and sliding scale insulin. Will adjust insulin units as needed. (4) Hypertension Onset Date: 12/20/17 Current Visit: Yes Status: Acute Plan: Stable, continue home medications. (5) Anemia Current Visit: Yes Status: Acute Plan: Patient with hemoglobin of 6.8 on admission, status post 2 units PRBCs. Her hemoglobin has remained stable since then. Monitor for any overt bleeding and monitor H&H. (6) Hypokalemia Current Visit: Yes Status: Acute Plan: Repleted per hypokalemia protocol Check a.m. labs (7) VRE (vancomycin resistant enterococcus) culture positive Current Visit: Yes Status: Acute Plan: Patient with urine studies positive for VRE. Dr. Tomlinson infectious disease consulted Pending PICC line placement. Patient was refusing last night. I spoke with patient and patient's sister. They would like to go ahead with the PICC line now all for IV antibiotics. Sister needs help with disposition for a short- term facility. Social work involved (8) Surgical wound, non healing Current Visit: Yes Status: Acute Plan: Surgical wound from prior colon resection surgery with drainage. Cultures positive for MRSE and Klebsiella sensitive to Bactrim. Continue PO Bactrim (9) Bacteremia Current Visit: Yes Status: Acute Plan: Continue IV antibiotics - Plan Her sister, she would like to get help on disposition on this patient. She would like to consider [facility] versus home health. Will put physical therapy consult for evaluation. Social work consult.
[2017-12-24] MEDS: VANCOMYCIN ORAL SOLN 250 MG/5 ML OSYR PO SCH ×5 (00:39→23:51)
--- NOTE | 2017-12-24 03:12 | P.PN ---
Date of Service: 12/24/17 Patient requesting to not have IV antibiotics at discharge-refusing PICC line right now. VRE could be treated with oral Zyvox-which would treat all gram positives growing in patients cx. (Plt ct adequate) All other Gram negative organisms can be treated with sulfa(Bactrim DS orally)
[2017-12-24] MEDS: NA CHLORIDE 0.9% 1,000 ML IV SCH ×2 (04:24→14:24)
--- NOTE | 2017-12-24 07:00 | EKG ---
Test Date: 2017-12-23 Test Time: 17:45:43 Ethics Manager: GHADA MEASUREMENT RESULTS: Intervals: Rate: 118 DC: 136 QRSD: 84 QT: 324 QTc: 454 [place]: P: 89 DC: 136 QRS: 89 T: -85 INTERPRETIVE STATEMENTS: Sinus tachycardia Low voltage QRS Septal infarct, age undetermined T wave abnormality, consider inferior ischemia T wave abnormality, consider anterolateral ischemia Abnormal ECG Compared to ECG 12/20/2017 09:34:01 Low QRS voltage now present Myocardial infarct finding now present T-wave abnormality now present Possible ischemia now present Sinus rhythm no longer present Atrial premature complex(es) no longer present Ventricular premature complex(es) no longer present Electronically Signed On 12-24-17 06:59:39 CDT by Andrea Le
[2017-12-24] MEDS: INSULIN LISPRO 100 UNIT/1 ML SQ SCH ×3 (07:30→16:30)
[2017-12-24] MEDS: INSULIN -REGULAR HUMAN 50 UNIT/0.5 ML ML SQ SCH ×4 (07:30→20:50)
[2017-12-24 07:36] LABS: Magnesium 1.8 mg/dL (1.8-2.4); Potassium 5.3 mmol/L (3.5-5.1)
[2017-12-24] MEDS: JUVEN PACKET PO SCH ×3 (09:00→20:49)
[2017-12-24] MEDS: ACETIC ACID 0.25% IRRIG IRR SCH (09:39)
[2017-12-24] MEDS: SMZ./TMP. 800/160 MG TABLET PO SCH ×2 (09:39→20:49)
[2017-12-24] MEDS: PIOGLITAZONE 15 MG TAB PO SCH (09:40)
[2017-12-24] MEDS: VANCOMYCIN/NS 1 gm 1 GM/250 ML BAG IV SCH (17:00)
--- NOTE | 2017-12-24 17:35 | P.PN ---
Subjective Date of Service: 12/24/17 Chief Complaint: Rectosigmoid colitis Patient seen and examined at bedside. Sister at bedside. Case discussed with nursing staff. Patient reports feeling better. Abdominal pain has now almost resolved and she is tolerating clear liquid diet.. Review of Systems As noted Physical Examination - Vital Signs Temperature: 97.9 F Blood Pressure: 93/53 Pulse: 110 Respirations: 16 Pulse Ox (%): 91 - Physical Exam General: Alert, In no apparent distress, Oriented x3 HEENT: Atraumatic, PERRLA, EOMI Neck: Supple, JVD not distended Respiratory: Clear to auscultation bilaterally, Normal air movement Cardiovascular: Regular rate/rhythm, Normal S1 S2 Gastrointestinal: Normal bowel sounds, No tenderness Musculoskeletal: No tenderness Integumentary: No rashes Neurological: Normal speech, Normal tone, Normal affect - Studies Medications List Reviewed: Yes Assessment And Plan - Current Problems (Diagnosis) (1) Diarrhea Current Visit: Yes Status: Acute Plan: Infectious, Clostridium difficile positive diarrhea. Much improved diarrhea since patient has been on oral vancomycin. We will continue oral vancomycin and IV Flagyl. Still pending ova and parasite studies. Qualifiers: Diarrhea type: infectious Qualified Code(s): A09 - Infectious gastroenteritis and colitis, unspecified (2) Colitis Onset Date: 12/20/17 Current Visit: Yes Status: Acute Plan: Colitis noted on imaging of the abdomen. On a clear liquid diet, advance diet as tolerated. Continue IV antibiotics Will likely need EGD/colonoscopy outpatient (3) Diabetes mellitus Onset Date: 12/20/17 Current Visit: Yes Status: Acute Plan: Accu-Cheks and sliding scale insulin. Will adjust insulin units as needed. (4) Hypertension Onset Date: 12/20/17 Current Visit: Yes Status: Acute Plan: Stable, continue home medications. (5) Anemia Current Visit: Yes Status: Acute Plan: Patient with hemoglobin of 6.8 on admission, status post 2 units PRBCs. Her hemoglobin has remained stable since then. Monitor for any overt bleeding and monitor H&H. (6) Hypokalemia Current Visit: Yes Status: Acute Plan: Repleted per hypokalemia protocol Check a.m. labs (7) VRE (vancomycin resistant enterococcus) culture positive Current Visit: Yes Status: Acute Plan: Patient with urine studies positive for VRE. Dr. Davi infectious disease consulted Pending PICC line placement. Patient was refusing last night. I spoke with patient and patient's sister. They would like to go ahead with the PICC line now all for IV antibiotics. Sister needs help with disposition for a short- term facility. Social work involved (8) Surgical wound, non healing Current Visit: Yes Status: Acute Plan: Surgical wound from prior colon resection surgery with drainage. Cultures positive for MRSE and Klebsiella sensitive to Bactrim. Continue PO Bactrim (9) Bacteremia Current Visit: Yes Status: Acute Plan: Continue IV antibiotics - Plan Her sister, she would like to get help on disposition on this patient. She would like to consider shelter versus home health. Will put physical therapy consult for evaluation. Social work consult.
--- NOTE | 2017-12-24 20:42 | CON ---
History Of Present Illness: This is a 72-year-old female. I was consulted for abdominal wound. The patient has surgical history for a colonic tumor resection, continues to have open wounds since 2017. The patient used to be in [place] where she had a colonic mass removed, has significant hi story of diabetes mellitus, hypertension. The patient also has a wound to her right foot secondary t o bunion . The patient denies any headache, nausea, vomiting, chest pain, abdominal pain, constipation, or diarrhea. She complains about liquid diet and would like to get some real food. Th e patient also has been diagnosed with C. diff colitis, for which she is in isolation. Past Medical History: Diabetes mellitus, hypertension, colonic tumor resection. Social History: Nonsmoker, nondrinker. Family History: Noncontributory. Medications: Tylenol, acetic acid, apresoline, Humalog insulin, NovoLog insulin, Zofran, Actos, Comp azine, Ultram, Bactrim, vancomycin p.o. and vancomycin IV. Review of Systems: A 10-point review was performed. Physical Examination: General: This is a 72-year-old female, lying in bed, not in any acute cardiopulmonary distress. Vital signs: Temperature 99, pulse 103, respirations 18, blood pressure 99/62. HEENT: Unremarkable. Neck: Supple. Lungs: Basal crackles. Heart: S1, S2. Regular. Abdomen: Soft. Bowel sounds present. Abdominal wound, 2 x 2.3 x 1.5; midepigastric wound 0.6 x 0.5 x 0.4. EXTREMITIES: Right lower extremity first metatarsal medial wound noted . Laboratory Data: Shows WBC 7.4, hemoglobin 10.3, platelets are 221. Chemistry shows sodium 138, pot assium 5.3, chloride 110, bicarb 18, BUN of 9, creatinine 0.8, glucose is 89. Microbiology Data: Shows wound culture growing Klebsiella pneumoniae and MRSA. Urine shows E. coli, Klebsiella oxytoca, and Enterococcus faecalis, which is VRE. Blood cultures growing Staphylococcus hominis. Assessment And Plan: Bacteremia secondary to Staphylococcus hominis in a 72-year-old female with sig nificant history of colonic tumor, status post resection; urinary tract infection with polymicrobial bacterial growth of Enterococcus faecalis vancomycin-resistant enterococci, Klebsiella oxytoca, and E scherichia coli. Abdominal wound is growing Klebsiella pneumoniae and methicillin-resistant Staph au reus. We will continue IV antibiotic total course of 4 weeks. Consider treating vancomycin-resistan t enterococci with ampicillin or Unasyn, which should cover Escherichia coli and Klebsiella oxytoca. Also, staph hominis which is only sensitive to vancomycin and rifampin, we will recommend to start the patient on vancomycin to cover staph hominis and methicillin-resistant Staphylococcus a ureus. Consider admitting the patient to long-term acute care for total of 4 weeks of IV antibiotics with vancomycin and Unasyn. REMBERTO/ANISHA Voice ID: [id number] Report ID: [id number]
[2017-12-25] MEDS: NA CHLORIDE 0.9% 1,000 ML IV SCH ×4 (00:24→18:37)
[2017-12-25] MEDS: VANCOMYCIN ORAL SOLN 250 MG/5 ML OSYR PO SCH ×3 (05:50→17:22)
--- NOTE | 2017-12-25 06:59 | RAD REPORT ---
EXAM DESCRIPTION: RAD - Chest Single View - 12/25/2017 1:56 am CLINICAL HISTORY: PICC line placement A preliminary report was provided at the time of the study and reviewed prior to final report. COMPARISON: December 19 FINDINGS: Portable chest was obtained following placement of a left upper extremity PICC line. The c atheter tip is in the azygos vein. Complete left hemithorax opacification is present from pleural effusion and atelectasis. Trachea is m idline.
--- NOTE | 2017-12-25 07:03 | RAD REPORT ---
EXAM DESCRIPTION: RAD - Chest Single View - 12/25/2017 3:21 am CLINICAL HISTORY: PICC line placement or repositioning A preliminary report was provided at the time of the study and reviewed prior to final report. COMPARISON: December 25 TECHNIQUE: AP portable chest image was obtained 0304 hours . FINDINGS: PICC line has been repositioned and now tracts across the midline into the right subclavia n jugular vein junction. Continued left hemithorax opacification. IMPRESSION: Left upper extremity PICC line has been repositioned with tip now in the right subclavia n jugular vein junction. No change to the left hemithorax opacification.
--- NOTE | 2017-12-25 07:04 | RAD REPORT ---
EXAM DESCRIPTION: RAD - Chest Single View - 12/25/2017 5:42 am CLINICAL HISTORY: PICC line placement A preliminary report was provided at the time of the study and reviewed prior to final report. COMPARISON: December 25 imaging FINDINGS: Portable chest was obtained following repositioning of a left upper extremity PICC line. T he catheter tip is in the distal SVC.
[2017-12-25] MEDS: INSULIN -REGULAR HUMAN 50 UNIT/0.5 ML ML SQ SCH ×4 (07:30→21:00)
[2017-12-25] MEDS: INSULIN LISPRO 100 UNIT/1 ML SQ SCH ×3 (07:30→16:29)
[2017-12-25] MEDS: JUVEN PACKET PO SCH ×2 (09:00→21:00)
[2017-12-25] MEDS: SMZ./TMP. 800/160 MG TABLET PO SCH (09:54)
[2017-12-25] MEDS: PIOGLITAZONE 15 MG TAB PO SCH (09:55)
[2017-12-25] MEDS: ACETIC ACID 0.25% IRRIG IRR SCH (09:56)
[2017-12-25] MEDS: VANCOMYCIN/NS 1 gm 1 GM/250 ML BAG IV SCH (11:07)
[2017-12-25] MEDS: AMPICILLIN/SULB 1.5 GM/100 ML BAG IV SCH ×2 (13:22→17:22)
--- NOTE | 2017-12-25 15:11 | P.PN ---
Subjective Date of Service: 12/25/17 Chief Complaint: Rectosigmoid colitis Patient seen and examined at bedside. No family at bedside. Case discussed with nursing staff. Patient reports feeling better. Abdominal pain has now almost resolved and she is tolerating regular diet Has a PICC line in place Review of Systems As noted above Physical Examination - Vital Signs Temperature: 98.4 F Blood Pressure: 106/55 Pulse: 109 Respirations: 20 Pulse Ox (%): 92 - Physical Exam General: Alert, In no apparent distress HEENT: Atraumatic, PERRLA, EOMI Neck: Supple, JVD not distended Respiratory: Clear to auscultation bilaterally, Normal air movement Cardiovascular: Regular rate/rhythm, Normal S1 S2 Gastrointestinal: Normal bowel sounds, No tenderness Musculoskeletal: No tenderness Integumentary: Skin lesion (Surgical wound on abdomen, drainage decreased.) Neurological: Normal speech, Normal tone, Normal affect - Studies Medications List Reviewed: Yes Assessment And Plan - Current Problems (Diagnosis) (1) Diarrhea Current Visit: Yes Status: Acute Plan: Infectious, Clostridium difficile positive diarrhea. Much improved diarrhea since patient has been on oral vancomycin. We will continue oral vancomycin. Still pending ova and parasite negative. Qualifiers: Diarrhea type: infectious Qualified Code(s): A09 - Infectious gastroenteritis and colitis, unspecified (2) Colitis Onset Date: 12/20/17 Current Visit: Yes Status: Acute Plan: Colitis noted on imaging of the abdomen. On a regular diet. Tolerating well clear liquid diet, advance diet as tolerated. Will likely need EGD/colonoscopy outpatient (3) Diabetes mellitus Onset Date: 12/20/17 Current Visit: Yes Status: Acute Plan: Accu-Cheks and sliding scale insulin. Will adjust insulin units as needed. (4) Hypertension Onset Date: 12/20/17 Current Visit: Yes Status: Acute Plan: Stable, continue home medications. (5) Anemia Current Visit: Yes Status: Acute Plan: Patient with hemoglobin of 6.8 on admission, status post 2 units PRBCs. Her hemoglobin has remained stable since then. Monitor for any overt bleeding and monitor H&H. (6) Hypokalemia Current Visit: Yes Status: Acute Plan: Monitor a.m. labs. Patient status post replacement (7) VRE (vancomycin resistant enterococcus) culture positive Current Visit: Yes Status: Acute Plan: Patient with urine studies positive for VRE. Dr. Tomlinson infectious disease consulted, recommendations appreciated PICC line placed. She will need to be on IV vancomycin and IV unasyn for 4 weeks. Social work involved, working on LTAC ([facility] in [place]) placement (8) Surgical wound, non healing Current Visit: Yes Status: Acute Plan: Surgical wound from prior colon resection surgery with drainage. Cultures positive for MRSE and Klebsiella sensitive to unison. Discontinue Bactrim, continue IV vancomycin and Unasyn. (9) Bacteremia Current Visit: Yes Status: Acute Plan: Continue IV antibiotics as noted above - Plan She is pending LTAC placement at [facility] Can discharge as soon as placement is set up.
[2017-12-26] MEDS: AMPICILLIN/SULB 1.5 GM/100 ML BAG IV SCH ×3 (00:24→17:40)
[2017-12-26] MEDS: VANCOMYCIN ORAL SOLN 250 MG/5 ML OSYR PO SCH ×4 (00:24→17:41)
[2017-12-26] MEDS: NA CHLORIDE 0.9% 1,000 ML IV SCH ×2 (06:24→16:24)
[2017-12-26] MEDS: INSULIN -REGULAR HUMAN 50 UNIT/0.5 ML ML SQ SCH ×4 (07:30→20:02)
[2017-12-26] MEDS: INSULIN LISPRO 100 UNIT/1 ML SQ SCH ×3 (07:30→16:30)
[2017-12-26 08:25] LABS: Magnesium 1.4 mg/dL (1.8-2.4)
[2017-12-26] MEDS ORDERED: MAGNESIUM SULFATE 1 gm IVPB 1 GM/100 ML BAG IV ONE ×2 (08:29→19:39)
[2017-12-26] MEDS ORDERED: Magnesium Sulfate 2gm IVPB 2 G/50 ML BAG IV ONE (08:30)
[2017-12-26] MEDS: ACETIC ACID 0.25% IRRIG IRR SCH (09:00)
[2017-12-26] MEDS: JUVEN PACKET PO SCH ×2 (09:20→20:03)
[2017-12-26] MEDS: PIOGLITAZONE 15 MG TAB PO SCH (09:20)
[2017-12-26] MEDS: VANCOMYCIN/NS 1 gm 1 GM/250 ML BAG IV SCH (12:05)
--- NOTE | 2017-12-26 15:58 | P.PN ---
Subjective Date of Service: 12/26/17 Primary Care Provider: None Chief Complaint: Rectosigmoid colitis Subjective: Other (Patient stable this time. No complaints noted) Physical Examination - Vital Signs Temperature: 98.1 F Blood Pressure: 119/58 Pulse: 100 Respirations: 18 Pulse Ox (%): 93 - Physical Exam General: Alert, In no apparent distress, Cooperative HEENT: Atraumatic Neck: Supple Respiratory: Clear to auscultation bilaterally, Normal air movement Cardiovascular: Normal pulses, Regular rate/rhythm Gastrointestinal: Normal bowel sounds, Soft and benign, Non-distended Musculoskeletal: No tenderness, No warmth Neurological: Normal speech, Normal tone - Studies Medications List Reviewed: Yes Assessment & Plan Discharge Plan: LTAC Plan to discharge in: 24 Hours Physician Review Additional Text: Impression: Diarrhea secondary to C diff colitis Diabetes mellitus type 2 Hypertension Anemia likely of chronic disease hypokalemia UTI with urine culture positive for vancomycin resistant Enterococcus Plan: Medications reviewed. Will continue with oral vancomycin. Patient continues with IV vancomycin and Unasyn. Patient will need to continue with IV medication for 4 weeks to cover UTI-VRE. Will discuss case with infectious disease. Patient awaiting placement to long-term acute care facility. Will continue to monitor diabetes and hypertension closely. Patient has received blood during the course of her stay. Will monitor this closely as well. Time Spent Managing Pts Care (In Minutes): 55
[2017-12-26] MEDS: ENOXAPARIN 30 MG/0.3 ML SQ SCH (17:41)
[2017-12-26] MEDS: ATORVASTATIN 80 MG TAB PO SCH (20:00)
--- NOTE | 2017-12-26 21:10 | PN ---
Subjective: The patient lying in bed. Denies any headache, nausea, vomiting, chest pain, abdominal pain, constipation, or diarrhea. Objective: Vital Signs: Temperature 98, pulse 100, respiration 18, blood pressure 119/58. Lungs: Basal crackles. Heart: S1, S2. Regular. Abdomen: Soft, nontender. Bowel sounds positive. Extremity: No edema. Laboratory Data: WBC 7.4, hemoglobin 10.3, platelets 231. Cultures growing Staph hominis in blood. Urine cultures are growing E. coli, Klebsiella, Enterococcus. Abdominal wound, Klebsiella pneumonia e and MRSA. Assessment And Plan: Currently, the patient is on Unasyn and vancomycin. Bacteremia secondary to St aphylococcus hominis and polymicrobial urinary tract infection, abdominal wound infection. Continue antibiotic and supportive care, total course of 2 weeks. We will follow the patient as needed. REMBERTO/ANISHA Voice ID: [id number] Report ID: [id number]
[2017-12-27] MEDS: VANCOMYCIN ORAL SOLN 250 MG/5 ML OSYR PO SCH ×5 (00:52→23:58)
[2017-12-27] MEDS: AMPICILLIN/SULB 1.5 GM/100 ML BAG IV SCH ×4 (00:52→23:59)
[2017-12-27] MEDS: NA CHLORIDE 0.9% 1,000 ML IV SCH ×2 (02:20→12:24)
[2017-12-27 06:16] LABS: Magnesium 1.9 mg/dL (1.8-2.4); Potassium 3.6 mmol/L (3.5-5.1)
[2017-12-27] MEDS ORDERED: POTASSIUM CL SA 10 MEQ TAB PO ONE (06:20)
[2017-12-27 06:24] LABS: Absolute Lymphocytes (CBC) 2.8 K/uL (0.7-4.9); Absolute Monocytes 0.6 K/uL (0.1-1.3); Absolute Neutrophil 3.5 K/uL (1.8-8.0); Basophils % 0.3 % (0-1.3); Eosinophils % 1.6 % (0-4.4); Hematocrit 27.6 % (36.0-45.0); Lymphocytes % 39.7 % (15.3-44.8); MCH 30.9 pg (27.0-35.0); MCV 91.8 fL (80-100); MPV 8.1 fL (7.6-11.3); RBC Red Blood Cell Count 3.01 M/uL (3.86-4.86)
[2017-12-27] MEDS: INSULIN LISPRO 100 UNIT/1 ML SQ SCH ×2 (07:30→11:24)
[2017-12-27] MEDS: INSULIN -REGULAR HUMAN 50 UNIT/0.5 ML ML SQ SCH ×4 (07:30→21:00)
[2017-12-27] MEDS: PIOGLITAZONE 15 MG TAB PO SCH (09:00)
[2017-12-27] MEDS: ACETIC ACID 0.25% IRRIG IRR SCH (09:00)
[2017-12-27] MEDS: FOLIC ACID 1 MG TABLET PO SCH (09:13)
[2017-12-27] MEDS: CLOPIDOGREL 75 MG TABLET PO SCH (09:13)
[2017-12-27] MEDS: JUVEN PACKET PO SCH ×2 (09:14→21:19)
[2017-12-27] MEDS: VANCOMYCIN/NS 1 gm 1 GM/250 ML BAG IV SCH (12:20)
--- NOTE | 2017-12-27 13:52 | P.PN ---
Subjective Date of Service: 12/27/17 Primary Care Provider: None Chief Complaint: Rectosigmoid colitis Subjective: Other (Patient continues to improve.) Physical Examination - Vital Signs Temperature: 97.8 F Blood Pressure: 122/64 Pulse: 106 Respirations: 18 Pulse Ox (%): 94 - Physical Exam General: Alert, In no apparent distress HEENT: Atraumatic Neck: Supple Respiratory: Clear to auscultation bilaterally, Normal air movement Cardiovascular: Normal pulses, Regular rate/rhythm Gastrointestinal: Normal bowel sounds, Soft and benign, Non-distended Musculoskeletal: No erythema, No tenderness, No warmth Integumentary: No erythema, No warmth, No cyanosis Neurological: Normal speech, Normal strength at 5/5 x4 extr, Normal tone, Normal affect - Studies Medications List Reviewed: Yes Assessment & Plan Discharge Plan: LTAC Plan to discharge in: 24 Hours Physician Review Additional Text: Impression: Diarrhea secondary to C diff colitis complicated with history of colectomy Diabetes mellitus type 2, insulin-dependent Hypertension Anemia likely of chronic disease Hypokalemia UTI with urine culture positive for E coli, Klebsiella and enterococcus- vancomycin resistant Enterococcus Abdominal wound with culture positive for Klebsiella and MRSA CAD Hyperlipidemia Plan: Diarrhea secondary to C diff colitis complicated with history of colectomy: Patient continues on oral vancomycin. She seems to have improved. Awaiting approval for long-term acute care facility placement. Diabetes mellitus type 2: Will continue with sliding scale. Patient also on Actos. Will continue to monitor and adjust appropriately. Hypertension: Will continue to monitor closely. Anemia likely of chronic disease: Will continue monitor closely. Hypokalemia: Will continue to monitor and replace appropriately. UTI with urine culture positive for E coli, Klebsiella and enterococcus- vancomycin resistant Enterococcus: Cultures reviewed. Will continue with acidic acid irrigation flushes. Will continue with IV Unasyn and vancomycin. Patient will need total 2 weeks of antibiotic therapy. Care discussed with infectious disease. Abdominal wound with culture positive for Klebsiella and MRSA: Will continue with current IV antibiotic therapy unison and vancomycin. Patient will need a total 2 weeks of antibiotic therapy. Continue with current wound care. Care discussed with infectious disease. CAD: Will continue with Plavix. Patient on DVT prophylaxis. Will have nursing confirm home medications. Hyperlipidemia: Will continue with Lipitor. Time Spent Managing Pts Care (In Minutes): 55
[2017-12-27 14:53] LABS: Ferritin 454.6 ng/mL (8-388)
[2017-12-27] MEDS: NACHLORIDE 0.45% 1,000 ML IV SCH (15:00)
[2017-12-27] MEDS: ENOXAPARIN 30 MG/0.3 ML SQ SCH (17:29)
[2017-12-27] MEDS: ATORVASTATIN 80 MG TAB PO SCH (21:18)
[2017-12-27] MEDS: ACETAMINOPHEN 500 MG TAB PO PRN (23:10)
[2017-12-27] MEDS: TRAMADOL HCL 50 MG TAB PO PRN (23:58)
[2017-12-28] MEDS: NACHLORIDE 0.45% 1,000 ML IV SCH ×3 (02:14→20:29)
[2017-12-28 05:16] LABS: Absolute Lymphocytes (CBC) 2.8 K/uL (0.7-4.9); Absolute Monocytes 0.5 K/uL (0.1-1.3); Absolute Neutrophil 3.1 K/uL (1.8-8.0); Basophils % 0.4 % (0-1.3); Eosinophils % 1.8 % (0-4.4); Hematocrit 26.4 % (36.0-45.0); Lymphocytes % 42.1 % (15.3-44.8); MCH 30.5 pg (27.0-35.0); MCV 91.4 fL (80-100); MPV 7.9 fL (7.6-11.3); RBC Red Blood Cell Count 2.89 M/uL (3.86-4.86)
[2017-12-28 05:35] LABS: BUN Blood Urea Nitrogen 7 mg/dL (7-18); Bicarbonate 22 mmol/L (21-32); Glucose Level 100 mg/dL (74-106); Potassium 3.3 mmol/L (3.5-5.1); Sodium Level 141 mmol/L (136-145)
[2017-12-28 05:36] LABS: Magnesium 1.3 mg/dL (1.8-2.4)
[2017-12-28] MEDS ORDERED: POTASSIUM CL SA 10 MEQ TAB PO ONE (05:39)
[2017-12-28] MEDS ORDERED: Magnesium Sulfate 2gm IVPB 2 G/50 ML BAG IV ONE (05:40)
[2017-12-28] MEDS: VANCOMYCIN ORAL SOLN 250 MG/5 ML OSYR PO SCH ×3 (05:55→18:42)
[2017-12-28] MEDS: INSULIN -REGULAR HUMAN 50 UNIT/0.5 ML ML SQ SCH ×4 (07:30→20:27)
[2017-12-28] MEDS: CLOPIDOGREL 75 MG TABLET PO SCH (09:58)
[2017-12-28] MEDS: PIOGLITAZONE 15 MG TAB PO SCH (09:58)
[2017-12-28] MEDS: FOLIC ACID 1 MG TABLET PO SCH (09:58)
[2017-12-28] MEDS: AMPICILLIN/SULB 1.5 GM/100 ML BAG IV SCH ×2 (09:58→16:55)
[2017-12-28] MEDS: JUVEN PACKET PO SCH ×2 (09:59→20:30)
[2017-12-28] MEDS: ACETIC ACID 0.25% IRRIG IRR SCH (09:59)
[2017-12-28] MEDS: VANCOMYCIN/NS 1 gm 1 GM/250 ML BAG IV SCH (11:14)
[2017-12-28 12:40] LABS: Magnesium 2.1 mg/dL (1.8-2.4); Potassium 4.1 mmol/L (3.5-5.1)
--- NOTE | 2017-12-28 12:41 | P.PN ---
Subjective Date of Service: 12/28/17 Primary Care Provider: None Chief Complaint: Rectosigmoid colitis Subjective: Other (Patient continues with IV antibiotic therapy. Patient stable this time.) Physical Examination - Vital Signs Temperature: 98.2 F Blood Pressure: 116/61 Pulse: 91 Respirations: 17 Pulse Ox (%): 93 - Physical Exam General: Alert, In no apparent distress, Oriented x3, Cooperative HEENT: Atraumatic Neck: Supple Respiratory: Clear to auscultation bilaterally, Normal air movement Cardiovascular: Normal pulses, Regular rate/rhythm Gastrointestinal: Normal bowel sounds, Non-distended, No masses, No rebound, No guarding Musculoskeletal: No tenderness, No warmth Integumentary: No cyanosis, Other (Abdominal wound measures about thumb size. It is about half an inch deep. No significant exudate noted.) Neurological: Normal speech, Normal strength at 5/5 x4 extr, Normal tone, Normal affect - Studies Medications List Reviewed: Yes Assessment & Plan Discharge Plan: LTAC Plan to discharge in: 72 Hours Physician Review Additional Text: Impression: Diarrhea secondary to C diff colitis complicated with history of colectomy Diabetes mellitus type 2, insulin-dependent Hypertension Anemia likely of chronic disease Hypokalemia UTI with urine culture positive for E coli, Klebsiella and enterococcus- vancomycin resistant Enterococcus Abdominal wound with culture positive for Klebsiella and MRSA CAD Hyperlipidemia Hypomagnesia Hypokalemia Plan: Diarrhea secondary to C diff colitis complicated with history of colectomy: Patient continues on oral vancomycin. Diarrhea improved. Awaiting approval for long-term acute care facility. Diabetes mellitus type 2: Will continue with sliding scale. Patient also on Actos. Will continue to monitor and adjust appropriately. Overall stable. Hypertension: Will continue to monitor closely. Patient off medication at this time. Anemia likely of chronic disease: Will continue monitor closely. Patient has received 2 units of blood. Hemoglobin slightly decreased from yesterday. Will continue monitor closely. Will maintain hemoglobin above 7.0. Patient may require transfusion. Hypokalemia: Will continue to monitor and replace appropriately. UTI with urine culture positive for E coli, Klebsiella and enterococcus- vancomycin resistant Enterococcus: Cultures reviewed. Will continue with acetic acid irrigation flushes. Will continue with IV Unasyn and vancomycin. Patient will need total 2 weeks of antibiotic therapy. Patient with complicated UTI. Care discussed with infectious disease. We both agree that the patient requires long-term acute care facility placement. Abdominal wound with culture positive for Klebsiella and MRSA: Will continue with current IV antibiotic therapy Unasyn and vancomycin. Continue with wound care. No exudate noted. Wound about thumb size to the abdomen midline. Patient will need a total 2 weeks of antibiotic therapy. Continue with current wound care. Care discussed with infectious disease. CAD: Will continue with Plavix. Patient on DVT prophylaxis. Hyperlipidemia: Will continue with Lipitor. Hypomagnesia: Will continue to monitor and replace electrolytes. Hypokalemia: Will continue monitor and replace electrolytes. Care discussed yesterday with insurance medical unit secretary concerning patient's current care and needs. Patient complicated with multiple comorbidities and multiple infections. Patient initially denied to go to a long-term acute care facility due to lack of information. This will go to a 2nd level reviewer. director game assured me that she will place an addendum indicating the need for long-term acute facility placement as the patient has multiple infections including bacteremia, UTI with VRE, wound culture to the abdomen that was positive for MRSA, and C diff colitis. Patient requires IV antibiotic therapy with aggressive wound care as per recommendations by infectious disease. Patient also continues with acetic acid irrigation flushes daily to the bladder to prevent recurrent UTI. Patient high risk for readmission and possible decline of health if the patient goes to a [place] [facility] facility. 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 Patient was removed from the facility by family to be closer to home. She then came to the emergency room and admitted 1 week after coming to the area. Her surgery and skilled placement occurred in [facility]. At this time , I will continue to recommend long-term acute care facility placement. Appeal process with next level reviewer has been initiated. Time Spent Managing Pts Care (In Minutes): 55
[2017-12-28] MEDS: ENOXAPARIN 30 MG/0.3 ML SQ SCH (16:55)
[2017-12-28] MEDS: ATORVASTATIN 80 MG TAB PO SCH (20:29)
[2017-12-28] MEDS: TRAMADOL HCL 50 MG TAB PO PRN (21:25)
[2017-12-29] MEDS: VANCOMYCIN ORAL SOLN 250 MG/5 ML OSYR PO SCH ×5 (00:38→23:25)
[2017-12-29] MEDS: AMPICILLIN/SULB 1.5 GM/100 ML BAG IV SCH ×3 (00:39→16:56)
[2017-12-29 05:47] LABS: BUN Blood Urea Nitrogen 7 mg/dL (7-18); Bicarbonate 20 mmol/L (21-32); Glucose Level 138 mg/dL (74-106); Magnesium 1.7 mg/dL (1.8-2.4); Potassium 3.6 mmol/L (3.5-5.1); Sodium Level 141 mmol/L (136-145)
[2017-12-29 06:00] LABS: Absolute Lymphocytes (CBC) 2.8 K/uL (0.7-4.9); Absolute Monocytes 0.6 K/uL (0.1-1.3); Absolute Neutrophil 3.7 K/uL (1.8-8.0); Basophils % 0.3 % (0-1.3); Eosinophils % 1.8 % (0-4.4); Hematocrit 26.2 % (36.0-45.0); Lymphocytes % 38.8 % (15.3-44.8); MCH 30.4 pg (27.0-35.0); MCV 92.1 fL (80-100); MPV 8.2 fL (7.6-11.3); Monocytes % 7.9 % (3.3-12.3); RBC Red Blood Cell Count 2.84 M/uL (3.86-4.86)
[2017-12-29] MEDS ORDERED: MAGNESIUM SULFATE 1 gm IVPB 1 GM/100 ML BAG IV ONE (06:34)
[2017-12-29] MEDS ORDERED: POTASSIUM 25 MEQ EFFERV TAB PO ONE (06:35)
[2017-12-29] MEDS: INSULIN -REGULAR HUMAN 50 UNIT/0.5 ML ML SQ SCH ×4 (07:30→21:00)
[2017-12-29] MEDS ORDERED: POTASSIUM CL SA 10 MEQ TAB PO ONE (09:00)
[2017-12-29] MEDS: ACETIC ACID 0.25% IRRIG IRR SCH (09:00)
[2017-12-29] MEDS: PIOGLITAZONE 15 MG TAB PO SCH (09:00)
[2017-12-29] MEDS: CLOPIDOGREL 75 MG TABLET PO SCH (09:18)
[2017-12-29] MEDS: FOLIC ACID 1 MG TABLET PO SCH (09:18)
[2017-12-29] MEDS: TRAMADOL HCL 50 MG TAB PO PRN ×2 (09:18→22:10)
[2017-12-29] MEDS: JUVEN PACKET PO SCH ×2 (09:20→21:00)
[2017-12-29] MEDS: NACHLORIDE 0.45% 1,000 ML IV SCH ×2 (09:20→22:13)
--- NOTE | 2017-12-29 09:43 | P.PN ---
Subjective Date of Service: 12/29/17 Primary Care Provider: None Chief Complaint: Rectosigmoid colitis Subjective: Doing well Physical Examination - Vital Signs Temperature: 98.3 F Blood Pressure: 150/72 Pulse: 103 Respirations: 16 Pulse Ox (%): 96 - Physical Exam General: Alert, In no apparent distress, Oriented x3, Cooperative HEENT: Atraumatic Neck: Supple Respiratory: Clear to auscultation bilaterally, Normal air movement Cardiovascular: Normal pulses, Regular rate/rhythm Gastrointestinal: Normal bowel sounds, Soft and benign, Non-distended, No rebound, No guarding Musculoskeletal: No tenderness, No warmth Integumentary: Other (No changes to abdominal wound.) Neurological: Normal speech, Normal strength at 5/5 x4 extr, Normal tone, Normal affect - Studies Medications List Reviewed: Yes Assessment & Plan Discharge Plan: LTAC Plan to discharge in: 24 Hours Physician Review Additional Text: Impression: Diarrhea secondary to C diff colitis complicated with history of colectomy Diabetes mellitus type 2, insulin-dependent Hypertension Anemia likely of chronic disease Hypokalemia UTI with urine culture positive for E coli, Klebsiella and enterococcus- vancomycin resistant Enterococcus Abdominal wound with culture positive for Klebsiella and MRSA CAD Hyperlipidemia Hypomagnesia Hypokalemia Plan: Diarrhea secondary to C diff colitis complicated with history of colectomy: Patient continues on oral vancomycin for total of 10 days, , end date= December 31. Diarrhea improved. Awaiting approval for long-term acute care facility. Diabetes mellitus type 2: Will continue with sliding scale. Patient also on Actos. Will continue to monitor and adjust appropriately. Overall stable. Hypertension: Will continue to monitor closely. Patient off medication at this time. Anemia likely of chronic disease: Will continue monitor closely. Patient has received 2 units of blood. Hemoglobin slightly decreased from yesterday. Will continue monitor closely. Will maintain hemoglobin above 7.0. Patient may require transfusion. Hypokalemia: Will continue to monitor and replace appropriately. UTI with urine culture positive for E coli, Klebsiella and enterococcus- vancomycin resistant Enterococcus: Cultures reviewed. Will continue with acetic acid irrigation flushes. Will continue with IV Unasyn and vancomycin. Patient will need total 2 weeks of antibiotic therapy, end date: January 04. Patient with complicated UTI. Care discussed with infectious disease. We both agree that the patient requires long-term acute care facility placement. Patient may require more IV antibiotic therapy after the , I will rediscuss with infectious disease tomorrow. Abdominal wound with culture positive for Klebsiella and MRSA: Will continue with current IV antibiotic therapy Unasyn and vancomycin. Continue with wound care. No exudate noted. Wound about thumb size to the abdomen midline. Patient will need a total 2 weeks of antibiotic therapy, end date January 04. Continue with current wound care. Care discussed with infectious disease. Patient may require more IV antibiotic therapy will Re discuss with Infectious Disease tomorrow. CAD: Will continue with Plavix. Patient on DVT prophylaxis. Hyperlipidemia: Will continue with Lipitor. Hypomagnesia: Will continue to monitor and replace electrolytes. Hypokalemia: Will continue monitor and replace electrolytes. Care discussed Saturday with insurance medical records clerk concerning patient's current care and needs. Patient complicated with multiple comorbidities and multiple infections. Patient initially denied to go to a long-term acute care facility due to lack of information. This will go to a 2nd level reviewer. director of recreation therapy assured me that she will place an addendum indicating the need for long-term acute facility placement as the patient has multiple infections including bacteremia, UTI with VRE, wound culture to the abdomen that was positive for MRSA, and C diff colitis. Patient requires IV antibiotic therapy with aggressive wound care as per recommendations by infectious disease. Patient also continues with acetic acid irrigation flushes daily to the bladder to prevent recurrent UTI. Patient high risk for readmission and possible decline of health if the patient goes to a long-term facility. 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 Patient was removed from the facility by family to be closer to home. She then came to the emergency room and admitted 1 week after coming to the area. Her surgery and skilled placement occurred in [facility]. At this time , I will continue to recommend long-term acute care facility placement. Appeal process with next level reviewer has been initiated. Time Spent Managing Pts Care (In Minutes): 55
[2017-12-29] MEDS: VANCOMYCIN/NS 1 gm 1 GM/250 ML BAG IV SCH (13:00)
[2017-12-29] MEDS: ENOXAPARIN 30 MG/0.3 ML SQ SCH (16:57)
[2017-12-29] MEDS: ATORVASTATIN 80 MG TAB PO SCH (22:09)
[2017-12-30] MEDS: AMPICILLIN/SULB 1.5 GM/100 ML BAG IV SCH ×3 (00:51→17:53)
[2017-12-30] MEDS: VANCOMYCIN ORAL SOLN 250 MG/5 ML OSYR PO SCH ×5 (05:26→23:35)
[2017-12-30 06:39] LABS: BUN Blood Urea Nitrogen 5 mg/dL (7-18); Bicarbonate 21 mmol/L (21-32); Glucose Level 80 mg/dL (74-106); Magnesium 1.6 mg/dL (1.8-2.4); Potassium 3.6 mmol/L (3.5-5.1); Sodium Level 139 mmol/L (136-145)
[2017-12-30] MEDS: INSULIN -REGULAR HUMAN 50 UNIT/0.5 ML ML SQ SCH ×4 (07:30→21:00)
[2017-12-30] MEDS ORDERED: MAGNESIUM SULFATE 1 gm IVPB 1 GM/100 ML BAG IV ONE (08:00)
[2017-12-30] MEDS: NACHLORIDE 0.45% 1,000 ML IV SCH ×2 (08:40→20:07)
[2017-12-30] MEDS: CLOPIDOGREL 75 MG TABLET PO SCH (08:42)
[2017-12-30] MEDS: PIOGLITAZONE 15 MG TAB PO SCH (08:42)
[2017-12-30] MEDS: FOLIC ACID 1 MG TABLET PO SCH (08:42)
[2017-12-30] MEDS: JUVEN PACKET PO SCH ×2 (08:44→20:06)
[2017-12-30] MEDS: ACETIC ACID 0.25% IRRIG IRR SCH (08:46)
[2017-12-30] MEDS ORDERED: POTASSIUM 25 MEQ EFFERV TAB PO ONE (09:00)
[2017-12-30] MEDS: VANCOMYCIN/NS 1 gm 1 GM/250 ML BAG IV SCH (12:04)
--- NOTE | 2017-12-30 12:14 | P.PN ---
Subjective Date of Service: 12/30/17 Primary Care Provider: None Chief Complaint: Rectosigmoid colitis Subjective: Doing well (Patient working with physical therapy) Physical Examination - Vital Signs Temperature: 97.8 F Blood Pressure: 127/67 Pulse: 107 Respirations: 16 Pulse Ox (%): 93 - Physical Exam General: Alert, In no apparent distress, Oriented x3, Cooperative HEENT: Atraumatic Neck: Supple Respiratory: Clear to auscultation bilaterally, Normal air movement Cardiovascular: Normal pulses, Regular rate/rhythm Gastrointestinal: Normal bowel sounds, Soft and benign, Non-distended, Other ( Wound to the abdomen unchanged) Musculoskeletal: No tenderness, No warmth Integumentary: No erythema, No warmth, No cyanosis Neurological: Normal speech, Normal strength at 5/5 x4 extr, Normal tone, Normal affect - Studies Medications List Reviewed: Yes Assessment & Plan Discharge Plan: LTAC Plan to discharge in: 24 Hours Physician Review Additional Text: Impression: Diarrhea secondary to C diff colitis complicated with history of colectomy Diabetes mellitus type 2, insulin-dependent Hypertension Anemia likely of chronic disease Hypokalemia UTI with urine culture positive for E coli, Klebsiella and enterococcus- vancomycin resistant Enterococcus Abdominal wound with culture positive for Klebsiella and MRSA CAD Hyperlipidemia Hypomagnesia Hypokalemia Plan: Diarrhea secondary to C diff colitis complicated with history of colectomy: Patient continues on oral vancomycin for total of 10 days, , end date= December 31. Diarrhea improved. Awaiting approval for long-term acute care facility. Care discussed with patient and social science research assistant. Patient to be reassessed by 2nd level reviewer for long-term acute care facility placement. Diabetes mellitus type 2: Will continue with sliding scale. Patient also on Actos. Will continue to monitor and adjust appropriately. Overall stable. Hypertension: Will continue to monitor closely. Patient off medication at this time. Anemia likely of chronic disease: Will continue monitor closely. Patient has received 2 units of blood during her stay. Hemoglobin remained stable. Will continue monitor closely. Will maintain hemoglobin above 7.0. Patient may require transfusion. Hypokalemia: Will continue to monitor and replace appropriately. UTI with urine culture positive for E coli, Klebsiella and enterococcus- vancomycin resistant Enterococcus: Cultures reviewed. Will continue with acetic acid irrigation flushes. Will continue with IV Unasyn and vancomycin. Patient will need total 2 weeks of antibiotic therapy, end date: January 04. Patient with complicated UTI. Care discussed with infectious disease on Saturday. We both agree that the patient requires long-term acute care facility placement. Patient may require more IV antibiotic therapy after the , I will rediscuss with infectious disease today. Abdominal wound with culture positive for Klebsiella and MRSA: Will continue with current IV antibiotic therapy Unasyn and vancomycin. Continue with wound care. No exudate noted. Wound about thumb size to the abdomen midline. Patient will need a total 2 weeks of antibiotic therapy, end date January 04. Continue with current wound care. Care discussed with infectious disease on Saturday. Patient may require more IV antibiotic therapy will Re discuss with Infectious Disease today. CAD: Will continue with Plavix. Patient on DVT prophylaxis. Hyperlipidemia: Will continue with Lipitor. Hypomagnesia: Will continue to monitor and replace electrolytes. Hypokalemia: Will continue monitor and replace electrolytes. Care discussed Saturday with insurance medical underwriter concerning patient's current care and needs. Patient complicated with multiple comorbidities and multiple infections. Patient initially denied to go to a long-term acute care facility due to lack of information. This will go to a 2nd level reviewer. director of player personnel assured me that she will place an addendum indicating the need for long-term acute facility placement as the patient has multiple infections including bacteremia, UTI with VRE, wound culture to the abdomen that was positive for MRSA, and C diff colitis. Patient requires IV antibiotic therapy with aggressive wound care as per recommendations by infectious disease. Patient also continues with acetic acid irrigation flushes daily to the bladder to prevent recurrent UTI. Patient high risk for readmission and possible decline of health if the patient goes to a longterm facility. In review of her past medical history it appears that the patient had failed longterm facility placement after she had surgery to remove a tumor from her colon. Patient was removed from the facility by family to be closer to home. She then came to the emergency room and admitted 1 week after coming to the area. Her surgery and skilled placement occurred in [facility]. At this time , I will continue to recommend long-term acute care facility placement. Appeal process with next level reviewer has been initiated. Spoke with social science research assistant today. Await approval. Time Spent Managing Pts Care (In Minutes): 55
[2017-12-30] MEDS: ENOXAPARIN 30 MG/0.3 ML SQ SCH (17:54)
[2017-12-30] MEDS: ATORVASTATIN 80 MG TAB PO SCH (20:07)
--- NOTE | 2017-12-30 20:15 | PN ---
Subjective: The patient lying in bed. Denies any headache, nausea, vomiting, chest pain, abdominal pain, constipation, or diarrhea. Objective: Vital Signs: Afebrile, pulse 78, respirations 15, blood pressure 127/57. Lungs: Clear to auscultation. Heart: S1, S2. Regular. Abdomen: Soft, nontender. Bowel sounds present. Wounds noted. Extremities: No edema. Laboratory Data: WBC 7.1, hemoglobin 8.6, platelets are 252. Continue Unasyn and vancomycin. Assessment And Plan: Staph hominis bacteremia, history of colonic tumor. Abdominal wound is healing well. Klebsiella pneumoniae and MRSA growth, continue supportive care and wound care pending transf er to long-term acute care. NF/MODL Voice ID: [id number] Report ID: [id number]
[2017-12-31] MEDS: AMPICILLIN/SULB 1.5 GM/100 ML BAG IV SCH ×3 (01:35→17:32)
[2017-12-31 05:39] LABS: BUN Blood Urea Nitrogen 6 mg/dL (7-18); Bicarbonate 23 mmol/L (21-32); Glucose Level 105 mg/dL (74-106); Potassium 3.8 mmol/L (3.5-5.1); Sodium Level 140 mmol/L (136-145)
[2017-12-31 05:40] LABS: Magnesium 1.4 mg/dL (1.8-2.4)
[2017-12-31] MEDS ORDERED: MAGNESIUM 50% 3 GM in NA CHLORIDE 0.9% 100 ML IV ONE (05:44)
[2017-12-31] MEDS ORDERED: POTASSIUM CL SA 10 MEQ TAB PO ONE (05:51)
[2017-12-31] MEDS ORDERED: Magnesium Sulfate 2gm IVPB 2 G/50 ML BAG IV ONE (06:15)
[2017-12-31] MEDS: VANCOMYCIN ORAL SOLN 250 MG/5 ML OSYR PO SCH ×4 (06:19→23:49)
[2017-12-31] MEDS: INSULIN -REGULAR HUMAN 50 UNIT/0.5 ML ML SQ SCH ×4 (07:30→20:46)
[2017-12-31] MEDS ORDERED: MAGNESIUM SULFATE 1 gm IVPB 1 GM/100 ML BAG IV ONE (08:00)
[2017-12-31] MEDS: FOLIC ACID 1 MG TABLET PO SCH (08:27)
[2017-12-31] MEDS: PIOGLITAZONE 15 MG TAB PO SCH (08:27)
[2017-12-31] MEDS: CLOPIDOGREL 75 MG TABLET PO SCH (08:28)
[2017-12-31] MEDS: JUVEN PACKET PO SCH ×2 (09:00→20:47)
[2017-12-31] MEDS: VANCOMYCIN/NS 1 gm 1 GM/250 ML BAG IV SCH (11:14)
[2017-12-31] MEDS: ACETIC ACID 0.25% IRRIG IRR SCH (11:16)
[2017-12-31] MEDS: NACHLORIDE 0.45% 1,000 ML IV SCH ×3 (11:20→15:27)
--- NOTE | 2017-12-31 13:41 | P.PN ---
Subjective Date of Service: 12/31/17 Primary Care Provider: None Chief Complaint: Rectosigmoid colitis Subjective: Doing well Physical Examination - Vital Signs Temperature: 97.3 F Blood Pressure: 140/67 Pulse: 109 Respirations: 18 Pulse Ox (%): 92 - Physical Exam General: Alert, In no apparent distress, Oriented x3, Cooperative HEENT: Atraumatic Neck: Supple Respiratory: Clear to auscultation bilaterally, Normal air movement Cardiovascular: Normal pulses, Regular rate/rhythm Gastrointestinal: Normal bowel sounds, Soft and benign, Non-distended, No masses , No rebound, No guarding Musculoskeletal: No erythema, No tenderness, No warmth Neurological: Normal speech, Normal strength at 5/5 x4 extr, Normal tone, Normal affect - Studies Medications List Reviewed: Yes Assessment & Plan Discharge Plan: LTAC Plan to discharge in: 24 Hours Physician Review Additional Text: Impression: Diarrhea secondary to C diff colitis complicated with history of colectomy Diabetes mellitus type 2, insulin-dependent Hypertension Anemia likely of chronic disease Hypokalemia UTI with urine culture positive for E coli, Klebsiella and enterococcus- vancomycin resistant Enterococcus Abdominal wound with culture positive for Klebsiella and MRSA CAD Hyperlipidemia Hypomagnesia Hypokalemia Plan: Diarrhea secondary to C diff colitis complicated with history of colectomy: Patient continues on oral vancomycin for total of 10 days, , end date= December 31. No significant changes noted. Diarrhea improved. Awaiting approval for long-term acute care facility. Care discussed with patient and social services aide. Patient to be reassessed by 2nd level reviewer for long-term acute care facility placement. Diabetes mellitus type 2: Will continue with sliding scale. Patient also on Actos. Will continue to monitor and adjust appropriately. Overall stable. Hypertension: Will continue to monitor closely. Patient off medication at this time. Anemia likely of chronic disease: Will continue monitor closely. Patient has received 2 units of blood during her stay. Hemoglobin remained stable. Will continue monitor closely. Will maintain hemoglobin above 7.0. Patient may require transfusion. Hypokalemia: Will continue to monitor and replace appropriately. UTI with urine culture positive for E coli, Klebsiella and enterococcus- vancomycin resistant Enterococcus: Cultures reviewed. Will continue with acetic acid irrigation flushes. Will continue with IV Unasyn and vancomycin. Patient will need total 2 weeks of antibiotic therapy, end date: January 04. Patient with complicated UTI. Care discussed with infectious disease on Saturday. We both agree that the patient requires long-term acute care facility placement. Patient may require more IV antibiotic therapy after the , I will rediscuss with infectious disease today. Abdominal wound with culture positive for Klebsiella and MRSA: Will continue with current IV antibiotic therapy Unasyn and vancomycin. Continue with wound care. No exudate noted. Wound about thumb size to the abdomen midline. Patient will need a total 2 weeks of antibiotic therapy, end date January 04. Continue with current wound care. Care discussed with infectious disease on Saturday. Patient may require more IV antibiotic therapy will Re discuss with Infectious Disease today. CAD: Will continue with Plavix. Patient on DVT prophylaxis. Hyperlipidemia: Will continue with Lipitor. Hypomagnesia: Will continue to monitor and replace electrolytes. Hypokalemia: Will continue monitor and replace electrolytes. Telemetry shows possible AFib. Will check EKG. Care discussed Saturday with insurance medical billing associate concerning patient's current care and needs. Patient complicated with multiple comorbidities and multiple infections. Patient initially denied to go to a long-term acute care facility due to lack of information. This will go to a 2nd level reviewer. director shopper marketing assured me that she will place an addendum indicating the need for long-term acute facility placement as the patient has multiple infections including bacteremia, UTI with VRE, wound culture to the abdomen that was positive for MRSA, and C diff colitis. Patient requires IV antibiotic therapy with aggressive wound care as per recommendations by infectious disease. Patient also continues with acetic acid irrigation flushes daily to the bladder to prevent recurrent UTI. Patient high risk for readmission and possible decline of health if the patient goes to a senior living facility. In review of her past medical history it appears that the patient had failed senior living facility placement after she had surgery to remove a tumor from her colon. Patient was removed from the facility by family to be closer to home. She then came to the emergency room and admitted 1 week after coming to the area. Her surgery and skilled placement occurred in [facility]. At this time , I will continue to recommend long-term acute care facility placement. Appeal process with next level reviewer has been initiated. Spoke with social services aide today. Await approval. Time Spent Managing Pts Care (In Minutes): 55
[2017-12-31] MEDS: ENOXAPARIN 30 MG/0.3 ML SQ SCH (17:31)
--- NOTE | 2017-12-31 18:05 | EKG ---
Test Date: 2017-12-31 Test Time: 13:57:40 Installations Inspector: GHADA MEASUREMENT RESULTS: Intervals: Rate: 110 AL: 124 QRSD: 78 QT: 364 QTc: 492 [place]: P: 62 AL: 124 QRS: 35 T: 240 INTERPRETIVE STATEMENTS: Sinus tachycardia Cannot rule out Anterior infarct, age undetermined T wave abnormality, consider inferolateral ischemia Abnormal ECG Compared to ECG 12/23/2017 17:45:43 No significant changes Electronically Signed On 12-31-17 18:03:01 TELEVISION SCHEDULE COORDINATOR by Ambrose Betancur
[2017-12-31] MEDS: ATORVASTATIN 80 MG TAB PO SCH (20:45)
[2017-12-31] MEDS: ACETAMINOPHEN 500 MG TAB PO PRN (20:45)
[2018-01-01] MEDS: AMPICILLIN/SULB 1.5 GM/100 ML BAG IV SCH ×3 (01:33→17:18)
[2018-01-01 05:11] LABS: BUN Blood Urea Nitrogen 6 mg/dL (7-18); Bicarbonate 23 mmol/L (21-32); Glucose Level 105 mg/dL (74-106); Potassium 3.8 mmol/L (3.5-5.1); Sodium Level 141 mmol/L (136-145)
[2018-01-01] MEDS: VANCOMYCIN ORAL SOLN 250 MG/5 ML OSYR PO SCH ×4 (05:31→23:54)
[2018-01-01] MEDS ORDERED: POTASSIUM CL SA 10 MEQ TAB PO ONE (05:58)
[2018-01-01 06:15] LABS: Magnesium 1.7 mg/dL (1.8-2.4)
[2018-01-01] MEDS ORDERED: MAGNESIUM SULFATE 1 gm IVPB 1 GM/100 ML BAG IV ONE (06:17)
[2018-01-01] MEDS: NACHLORIDE 0.45% 1,000 ML IV SCH ×2 (06:36→23:53)
[2018-01-01] MEDS: INSULIN -REGULAR HUMAN 50 UNIT/0.5 ML ML SQ SCH ×4 (07:30→21:00)
[2018-01-01] MEDS: JUVEN PACKET PO SCH ×2 (09:00→21:00)
[2018-01-01] MEDS: PIOGLITAZONE 15 MG TAB PO SCH (09:05)
[2018-01-01] MEDS: FOLIC ACID 1 MG TABLET PO SCH (09:05)
[2018-01-01] MEDS: ACETIC ACID 0.25% IRRIG IRR SCH (09:05)
[2018-01-01] MEDS: CLOPIDOGREL 75 MG TABLET PO SCH (09:05)
[2018-01-01] MEDS: VANCOMYCIN/NS 1 gm 1 GM/250 ML BAG IV SCH (11:00)
--- NOTE | 2018-01-01 14:15 | P.PN ---
Subjective Date of Service: 01/01/18 Primary Care Provider: None Chief Complaint: Rectosigmoid colitis Subjective: Other (Patient stable. No significant complaints noted. Patient working with physical therapy.) Physical Examination - Vital Signs Temperature: 98.3 F Blood Pressure: 150/70 Pulse: 113 Respirations: 20 Pulse Ox (%): 94 - Physical Exam General: Alert, In no apparent distress, Oriented x3, Cooperative HEENT: Atraumatic Neck: Supple Respiratory: Clear to auscultation bilaterally, Normal air movement Cardiovascular: Abnormal pulses (Sinus tachycardia) Gastrointestinal: Normal bowel sounds, No tenderness, No masses, No rebound, No guarding Musculoskeletal: No erythema, No tenderness, No warmth Integumentary: No erythema, No warmth, No cyanosis Neurological: Normal speech, Normal strength at 5/5 x4 extr, Normal tone, Normal affect - Studies Medications List Reviewed: Yes Assessment & Plan Discharge Plan: LTAC Plan to discharge in: 24 Hours Physician Review Additional Text: Impression: Diarrhea secondary to C diff colitis complicated with history of colectomy Diabetes mellitus type 2, insulin-dependent Hypertension Anemia likely of chronic disease Hypokalemia UTI with urine culture positive for E coli, Klebsiella and enterococcus- vancomycin resistant Enterococcus Abdominal wound with culture positive for Klebsiella and MRSA CAD Hyperlipidemia Hypomagnesia Hypokalemia Plan: Diarrhea secondary to C diff colitis complicated with history of colectomy: Patient continues on oral vancomycin. Still with diarrhea therefore will continue with medication for 7 more days. End date= January 07. No significant changes noted. Diarrhea improved. Awaiting approval for long-term acute care facility. Care discussed with patient and psychotherapist social worker. Patient to be reassessed by 2nd level reviewer for long-term acute care facility placement. Awaiting for approval by insurance. Social work anticipates today or tomorrow on decision.Tachycardia noted. No atrial fibrillation noted on EKG. Diabetes mellitus type 2: Will continue with sliding scale. Patient also on Actos. Will continue to monitor and adjust appropriately. Overall stable. Hypertension: Will continue to monitor closely. Patient off medication at this time. Anemia likely of chronic disease: Will continue monitor closely. Patient has received 2 units of blood during her stay. Hemoglobin remained stable. Will continue monitor closely. Will maintain hemoglobin above 7.0. Patient may require transfusion. Hypokalemia: Will continue to monitor and replace appropriately. UTI with urine culture positive for E coli, Klebsiella and enterococcus- vancomycin resistant Enterococcus: Cultures reviewed. Will continue with acetic acid irrigation flushes. Will continue with IV Unasyn and vancomycin. Patient will need total 2 weeks of antibiotic therapy, end date: January 04. Patient with complicated UTI. Care discussed with infectious disease on Saturday. We both agree that the patient requires long-term acute care facility placement. Patient may require more IV antibiotic therapy after the , I will rediscuss with infectious disease. Abdominal wound with culture positive for Klebsiella and MRSA: Will continue with current IV antibiotic therapy Unasyn and vancomycin. Continue with wound care. No exudate noted. Wound about thumb size to the abdomen midline. Patient will need a total 2 weeks of antibiotic therapy, end date January 04. Continue with current wound care. Care discussed with infectious disease on Saturday. Patient may require more IV antibiotic therapy will Re discuss with Infectious Disease. CAD: Will continue with Plavix. Patient on DVT prophylaxis. Hyperlipidemia: Will continue with Lipitor. Hypomagnesia: Will continue to monitor and replace electrolytes. Hypokalemia: Will continue monitor and replace electrolytes. Tachycardia noted. No atrial fibrillation noted on EKG. Care discussed Saturday with insurance neuropsychology medical consultant concerning patient's current care and needs. Patient complicated with multiple comorbidities and multiple infections. Patient initially denied to go to a long-term acute care facility due to lack of information. This will go to a 2nd level reviewer. financial reporting director assured me that she will place an addendum indicating the need for long-term acute facility placement as the patient has multiple infections including bacteremia, UTI with VRE, wound culture to the abdomen that was positive for MRSA, and C diff colitis. Patient requires IV antibiotic therapy with aggressive wound care as per recommendations by infectious disease. Patient also continues with acetic acid irrigation flushes daily to the bladder to prevent recurrent UTI. Patient high risk for readmission and possible decline of health if the patient goes to a snf facility. In review of her past medical history it appears that the patient had failed snf facility placement after she had surgery to remove a tumor from her colon. Patient was removed from the facility by family to be closer to home. She then came to the emergency room and admitted 1 week after coming to the area. Her surgery and skilled placement occurred in [facility]. At this time , I will continue to recommend long-term acute care facility placement. Appeal process with next level reviewer has been initiated. Spoke with psychotherapist social worker today. Await approval. Hopefully will learn some thin within the next 1-2 days. Time Spent Managing Pts Care (In Minutes): 55
[2018-01-01] MEDS: ENOXAPARIN 30 MG/0.3 ML SQ SCH (17:17)
--- NOTE | 2018-01-01 19:01 | PN ---
Subjective: The patient is lying in bed. Denies any headache, nausea, vomiting, chest pain, abdomin al pain, constipation, or diarrhea. Objective: Vital signs: Temperature 98, pulse 113, respirations 18, blood pressure 150/70. Lungs: Basal crackles. Heart: S1, S2. Regular. Abdomen: Soft, nontender. Bowel sounds positive. Laboratory Data: WBC 7.1, hemoglobin 8.6, platelets 252. Chemistry shows sodium 141, potassium 3.8, chloride 110, bicarb 23, BUN 6, creatinine 0.6, glucose 145. Abdominal wound, Klebsiella pneumoniae and MRSA. Urine; E. coli, Klebsiella, enterococcus. Blood cu ltures, Staph hominis. Assessment And Plan: Bacteremia secondary to Staph hominis; abdominal wound secondary to methicillin -resistant Staphylococcus aureus and Klebsiella pneumoniae; urinary tract infection and sepsis second godwin to Escherichia coli, Klebsiella, and Enterococcus. Continue antibiotic and supportive care. We will follow the patient as needed. REMBERTO/ANISHA Voice ID: [id number] Report ID: [id number]
[2018-01-01] MEDS: ATORVASTATIN 80 MG TAB PO SCH (21:03)
[2018-01-01] MEDS: TRAMADOL HCL 50 MG TAB PO PRN (21:37)
[2018-01-01] MEDS ORDERED: VANCOMYCIN/NS 1 gm 1 GM/250 ML BAG IV SCH (23:00)
[2018-01-02] MEDS: AMPICILLIN/SULB 1.5 GM/100 ML BAG IV SCH ×2 (01:59→09:24)
[2018-01-02 05:18] LABS: BUN Blood Urea Nitrogen 4 mg/dL (7-18); Bicarbonate 25 mmol/L (21-32); Glucose Level 98 mg/dL (74-106); Magnesium 1.6 mg/dL (1.8-2.4); Potassium 3.4 mmol/L (3.5-5.1); Sodium Level 141 mmol/L (136-145)
[2018-01-02] MEDS: VANCOMYCIN ORAL SOLN 250 MG/5 ML OSYR PO SCH ×2 (05:40→12:10)
[2018-01-02] MEDS ORDERED: MAGNESIUM SULFATE 1 gm IVPB 1 GM/100 ML BAG IV ONE (05:49)
[2018-01-02] MEDS ORDERED: POTASSIUM CL SA 10 MEQ TAB PO ONE (05:49)
[2018-01-02] MEDS: INSULIN -REGULAR HUMAN 50 UNIT/0.5 ML ML SQ SCH ×2 (07:30→11:30)
[2018-01-02] MEDS: JUVEN PACKET PO SCH (09:00)
[2018-01-02] MEDS: FOLIC ACID 1 MG TABLET PO SCH (09:24)
[2018-01-02] MEDS: CLOPIDOGREL 75 MG TABLET PO SCH (09:24)
[2018-01-02] MEDS: PIOGLITAZONE 15 MG TAB PO SCH (09:24)
[2018-01-02] MEDS: ACETIC ACID 0.25% IRRIG IRR SCH (09:27)
[2018-01-02 10:42] VITALS: O2SAT 94
--- NOTE | 2018-01-02 11:15 | P.DS ---
Admission Date: 12/19/17 Discharge Date: 01/02/18 Primary Care Provider: None Disposition: ROUTINE DISCHARGE Discharge Condition: GOOD Reason for Admission: Rectosigmoid colitis Consultations: Infectious disease-Dr. Tomlinson Procedures: CT scan: COMPARISON: Chest films same date TECHNIQUE: Following dynamic enhancement using 100 milliliters nonionic IV contrast, axial imaging of the chest, abdomen and pelvis was performed. Biphasic technique was utilized through the abdomen. Oral contrast was administered. All CT scans are performed using dose optimization technique as appropriate and may include automated exposure control or mA/KV adjustment according to patient size. FINDINGS: Fibrotic lung changes are present. No focal infiltrate or mass. Calcified granuloma seen posterior mid right lung field. No pleural effusion, pleural thickening or pneumothorax. No significant aortic or pulmonary arterial tree finding. Mediastinal and hilar regions show no mass or abnormal lymphadenopathy. No chest wall mass or axillary lymphadenopathy. Mediastinal and hilar granulomatous calcifications are present. The liver, spleen and pancreas show no suspicious findings. Cholecystectomy clips are present. No biliary tree dilatation. Symmetric renal function is seen with no mass or hydronephrosis. No pyelonephritis or acute renal parenchymal process seen. Hemphill of the ureter are more prominent than typically seen. There is no significant delay or asymmetry of function. Urinary bladder is contracted around a Penn catheter. Air within the lumen is probably from the catheter placement. Pelvic floor assessment is limited due to the dense spray artifact from the right hip prosthesis. No gastric dilatation or gastric wall thickening seen. Gastric assessment is limited due to the limited amount contrast or content within the lumen of the stomach. No dilated small bowel loops. No acute appendicitis findings. Hemphill of the transverse colon are mildly prominent. This may be a peristalsis artifact. Wall thickening or edema is evident in the sigmoid colon and rectum. There is edema and stranding in the presacral fatty tissues. There is stranding along the posterior and left lateral margin of the lower sacrum and coccyx. No air or foreign body seen. Disc and bony degenerative changes are present. No free air or pneumatosis. No destructive bone process seen. Dense arterial tree calcifications are present. IMPRESSION: No significant CT chest finding. Wall thickening and edema of the rectum and sigmoid colon with significant edema and stranding in the presacral fatty tissues. Rectosigmoid colitis is suspected. Patient gives a history of some sort of GI mass that was biopsied but not resected or fully treated. Malignancy of the rectum cannot be excluded. Hemphill of each ureter are thicker and more prominent than usually seen. Ureteritis is certainly a possibility. No pyelonephritis seen. Urinary bladder cannot be assessed. Bladder is contracted around a Penn catheter. [place] artifact from the hip limits further the ability to assess the bladder. Cystitis is certainly a possibility. Medical problem list: Diarrhea secondary to C diff colitis complicated with history of colectomy Diabetes mellitus type 2, insulin-dependent Hypertension Anemia likely of chronic disease Hypokalemia UTI with urine culture positive for E coli, Klebsiella and enterococcus- vancomycin resistant Enterococcus Abdominal wound with culture positive for Klebsiella and MRSA CAD Hyperlipidemia Hypomagnesia Hypokalemia Brief History of Present Illness: 72 yo CF presented to the ER with diarrhea and increasing fatigue. Patient recently hospitalized in [place], [place] for colectomy. Patient found to have colitis. She was admitted for further evaluation. Hospital Course: Patient presented to the ER with diarrhea. She was found to have c. diff colitis complicated with history of colectomy. Patient remains on oral vancomycin. She has been accepted to go to middle or intermediate school principal acute care facility to address this problem and others. She will continue with oral vancomycin until January 07. She will need to follow up with GI as outpatient for colonoscopy. Patient was also found to have a UTI with urine culture positive for E. Coli, Klebsiella, and Entercoccus-VRE. She was seen by Infectious disease. Due to the complicated UTI, She will require IV antibiotics-Unasyn and Vancomycin for total of 2 weeks. End date is expected to be January 04, 2018 but she may require more duration. She will continue at [facility] with direction of infectious disease. She will continue with Acetic acid flushes daily to bladder to prevent UTIs in the future. Patient also found to have abdominal wound with history of colectomy. Wound culture positive for Klebsiella and MRSA. For this patient remains on IV Unsyn and Vancomycin as recommended by Infectious disease. She will continue with IV antibiotics also for 2 weeks but may require more duration. She will continue with wound care. Patient has DM type 2. She will continue with Actos daily. Recommend to maintain BS less than 140 fasting and less than 200 after meals. Patient has HTN. Patient currently off medication. This can be monitored closely. If elevated patient may require medication. Patient has anemia of chronic disease. Patient was given 2 units of packed red blood cells during her stay. Hemoglobin remained stable. This can be monitored closely at the long-term acute care facility. Patient with CAD. Patient continue with Plavix 75 mg daily. Patient also on DVT prophylaxis. This can be continued at the long-term acute care facility. Patient with hyperlipidemia. She may continue with Lipitor daily. Please review previous progress notes for more details on her plan of care. Vital Signs/Physical Exam: Temp Pulse Resp BP Pulse Ox 98.4 F 108 H 20 134/68 94 01/02/18 08:00 01/02/18 08:00 01/02/18 08:00 01/02/18 08:00 01/02/18 08:00 General: Alert, In no apparent distress, Oriented x3, Cooperative HEENT: Atraumatic Neck: Supple Respiratory: Clear to auscultation bilaterally, Normal air movement Cardiovascular: Normal pulses, Regular rate/rhythm Gastrointestinal: Normal bowel sounds, Soft and benign, Non-distended, No masses , No rebound, No guarding Musculoskeletal: No erythema, No tenderness, No warmth Integumentary: No tenderness/swelling, No erythema, No warmth, No cyanosis Neurological: Normal speech, Normal strength at 5/5 x4 extr, Normal tone, Normal affect Laboratory Data at Discharge: WBC 7.1 K/uL (4.3-10.9) 12/29/17 05:05 Hgb 8.6 g/dL (12.0-15.0) L 12/29/17 05:05 Hct 26.2 % (36.0-45.0) L 12/29/17 05:05 Plt Count 262 K/uL (152-406) 12/29/17 05:05 PT 14.0 SECONDS (9.5-12.5) H 12/19/17 19:50 INR 1.18 12/19/17 19:50 Sodium 141 mmol/L (136-145) 01/02/18 04:20 Potassium 3.4 mmol/L (3.5-5.1) L 01/02/18 04:20 BUN 4 mg/dL (7-18) L 01/02/18 04:20 Creatinine 0.60 mg/dL (0.55-1.3) 01/02/18 04:20 Glucose 98 mg/dL (74-106) 01/02/18 04:20 Magnesium 1.6 mg/dL (1.8-2.4) L 01/02/18 04:20 Total Bilirubin 0.5 mg/dL (0.2-1.0) 12/22/17 06:29 AST 12 U/L (15-37) L 12/22/17 06:29 ALT 11 U/L (12-78) L 12/22/17 06:29 Alkaline Phosphatase 127 U/L (45-117) H 12/22/17 06:29 Lipase 41 U/L (73-393) L 12/19/17 18:55 Home Medications: Atorvastatin Calcium [Lipitor*] 80 mg PO BEDTIME 12/20/17 Cholecalciferol (Vitamin D3) [Vitamin D3] 50,000 unit PO SEECOM 12/20/17 Clopidogrel Bisulfate [Plavix*] 1 tab PO DAILY 12/20/17 Folic Acid 1 tab PO DAILY 12/20/17 Gabapentin [Neurontin*] 600 mg PO BID 12/20/17 Methotrexate [Methotrexate*] 4 tab PO SEECOM 12/20/17 Pioglitazone [Actos*] 1 tab PO DAILY 12/20/17 Acetic Acid 0.25% [Acetic Acid 0.25%*] 1,000 ml IRR DAILY #1 btl 01/02/18 New Medications: Acetic Acid 0.25% [Acetic Acid 0.25%*] 1,000 ml IRR DAILY #1 btl Patient Discharge Instructions: 1. Patient be transferred to long-term acute facility to continue IV antibiotic therapy and wound care. 2. Continue with current meds. Diet: ADA Activity: Fall precautions Time spent managing pt's care (in minutes): 55
[2018-01-02 12:49] VITALS: BP 130/61; TEMP 97.7
== END 2018-01-02 13:30 | DRG 372 ==
LOC: ER 17:40 → ERHOLD 20:31 → 4TH 22:49
PROVIDERS: ADMIT Internal Medicine; ATTEND Family Medicine
PROC: 30233N1 Transfusion of Nonautologous Red Blood Cells into Peripheral Vein, Percutaneous Approach (ICD-10-PCS; principal; 2017-12-20)
PROC: 02HV33Z Insertion of Infusion Device into Superior Vena Cava, Percutaneous Approach (ICD-10-PCS; 2017-12-25)
PROC: B548ZZA Ultrasonography of Superior Vena Cava, Guidance (ICD-10-PCS; 2017-12-25)
DX: A04.72 Enterocolitis due to Clostridium difficile, not specified as recurrent (principal); N39.0 Urinary tract infection, site not specified; T81.49XA Infection following a procedure, other surgical site, initial encounter; R78.81 Bacteremia; Z90.49 Acquired absence of other specified parts of digestive tract; E11.8 Type 2 diabetes mellitus with unspecified complications; Z79.4 Long term (current) use of insulin; D63.8 Anemia in other chronic diseases classified elsewhere; E87.6 Hypokalemia; B96.20 Unspecified Escherichia coli [E. coli] as the cause of diseases classified elsewhere; B96.1 Klebsiella pneumoniae [K. pneumoniae] as the cause of diseases classified elsewhere; B95.2 Enterococcus as the cause of diseases classified elsewhere; Z16.21 Resistance to vancomycin; I25.10 Atherosclerotic heart disease of native coronary artery without angina pectoris; I10 Essential (primary) hypertension; E78.5 Hyperlipidemia, unspecified; E83.42 Hypomagnesemia; B95.62 Methicillin resistant Staphylococcus aureus infection as the cause of diseases classified elsewhere; Y83.8 Other surgical procedures as the cause of abnormal reaction of the patient, or of later complication, without mention of misadventure at the time of the procedure; Y92.238 Other place in hospital as the place of occurrence of the external cause; B95.7 Other staphylococcus as the cause of diseases classified elsewhere
CPT/HCPCS: 36415; 36430; 51702; 71045; 71260; 72100; 74177; 80048; 80053; 80076; 80202; 81003; 82607; 82728; 82962; 83540; 83605; 83690; 83735; 83880; 84132; 84145; 84443; 84466; 84484; 85014; 85018; 85025; 85610; 86850; 86900; 86901; 87040; 87045; 87046; 87070; 87077; 87086; 87088; 87186; 87205; 87493; 89055; 93005; 96361; 96365; 96367; 96375; 97163; 99285; C9113; G0008; J0295; J0696; J0744; J1650; J2405; J3010; J3370; J3475; J7030; P9016; Q2035; Q9967

== ENCOUNTER 2018-01-30 12:56 | Emergency (ER) | payer OTHER ==
--- OUTSIDE RECORDS SUMMARY | 2018-01-30 12:59 | XMS REPORT | Clinical Summary ---
:1945 Author Organization [facility] Address [address] [place] [address] Care Team Providers Name Role Phone Elsa De Los Santos DPM Primary Care Provider Allergies Not on File Medications Not on file Active Problems Not on file Encounters Date Type Specialty Care Team Description 01/15/2018 Outside Orders Elsa De Los Santos DPM after 01/29/2017 Social History Tobacco Use Types Packs/Day Years Used Date Never Assessed Sex Assigned at Date Recorded Not on file Job Start Date Occupation Industry Not on file Not on file Not on file Travel History Travel Start Travel End No recent travel history available. Last Filed Vital Signs Not on file Plan of Treatment Not on file Results Not on fileafter 01/29/2017 Insurance Payer Benefit Plan / Group Subscriber ID Type Phone Address [employer] xxxxxxxxxxxx
--- OUTSIDE RECORDS SUMMARY | 2018-01-30 12:59 | XMS REPORT ---
:1945 Author [facility] Address [address] [place] [address] [address]. [address] [place] [address] Care Team Providers Name Role Phone DR DEMOND STEINBERG Unavailable Unavailable Problems This patient has no known problems. Allergies, Adverse Reactions, Alerts This patient has no known allergies or adverse reactions. Medications This patient has no known medications. Encounters Start End Encounter Admission Attending Care Care Encounter Date/Time Date/Time Type Type Clinicians Facility Department ID 2018-01-14 Inpatient RAMIRO ARRIOLA RAD [id number] 14:00:00 DEMOND QUNITERO
[2018-01-30] MEDS ORDERED: NA CHLORIDE 0.9% 1,000 ML ONE (14:00)
[2018-01-30 14:36] LABS: Absolute Lymphocytes (CBC) 1.5 K/uL (0.7-4.9); Absolute Neutrophil 1.1 K/uL (1.8-8.0); Basophils % 0.4 % (0-1.3); Eosinophils % 6.2 % (0-4.4); Hematocrit 25.9 % (36.0-45.0); Lymphocytes % 53.6 % (15.3-44.8); MCH 31.6 pg (27.0-35.0); MCV 91.9 fL (80-100); MPV 9.6 fL (7.6-11.3); Monocytes % 0.3 % (3.3-12.3); RBC Red Blood Cell Count 2.82 M/uL (3.86-4.86)
--- NOTE | 2018-01-30 15:09 | ER ---
Nurse's Notes [facility] Name: Coreen Chu Age: 72 yrs Sex: Female : 1945 Arrival Date: 01/30/2018 Time: 13:00 Bed 26 Private MD: Jose Eduardo Hernández Diagnosis: anemia;hypokalemia Presentation: 01/30 13:10 Presenting complaint: Patient states: I have C.diff and my blood levels are dropping so la1 they told me to come get checked. Transition of care: patient was not received from another setting of care. Onset of symptoms was January 30, 2018. Risk Assessment: Do you want to hurt yourself or someone else? Patient reports no desire to harm self or others. Initial Sepsis Screen: Does the patient meet any 2 criteria? No. Patient's initial sepsis screen is negative. Does the patient have a suspected source of infection? No. Patient's initial sepsis screen is negative. Care prior to arrival: None. 13:10 Method Of Arrival: Wheelchair la1 13:10 Acuity: HELENA 3 la1 Triage Assessment: 13:35 General: Appears ill, Behavior is calm, cooperative. Pain: Complains of pain in back ls4 Pain currently is 5 out of 10 on a pain scale. Quality of pain is described as aching, sharp, Pain began years ago. Is continuous. Neuro: Level of Consciousness is awake, alert, obeys commands, Oriented to person, place, time, situation, Coating Operator are equal bilaterally Weakness in left leg(s) Gait is ataxic, Speech is normal, Facial symmetry appears normal, Pupils are PERRLA. Cardiovascular: Denies chest pain, diaphoresis, fatigue, lightheadedness, nausea, palpitations, shortness of breath, syncope, vomiting. Respiratory: No deficits noted. GI: No deficits noted. Patient currently denies nausea, vomiting, Parent/caregiver reports the patient having diarrhea, patient and caregiver state she has one to three bowel movements per day. stool is soft formed, brown and not watery. : No deficits noted. Derm: Decubitus located on sacrum is stage I non blanchable redness on arrival to ed. Musculoskeletal: Circulation, motion, and sensation intact. Capillary refill < 3 seconds, left foot drop. Historical: - Allergies: 13:11 Codeine; la1 - PMHx: 13:11 "Kidney problems"; Chronic pain; Diabetes - NIDDM; Hyperlipidemia; Hypertension; la1 Rheumatoid Arthritis; - Immunization history:: Adult Immunizations up to date. - Social history:: Smoking status: Patient/guardian denies using tobacco. - Ebola Screening: : No symptoms or risks identified at this time. Screenin:14 Abuse screen: Denies threats or abuse. Denies injuries from another. Nutritional ls4 screening: No deficits noted. Tuberculosis screening: No symptoms or risk factors identified. Fall Risk None identified. Assessment: 13:10 General: Appears uncomfortable. ls4 13:10 Neuro: No deficits noted. Cardiovascular: No deficits noted. Respiratory: No deficits ls4 noted. GI: No deficits noted. Musculoskeletal: Reports weakness in left foot. Vital Signs: 13:11 BP 136 / 52; Pulse 95; Resp 18; Temp 98.4; Pulse Ox 100% on R/A; la1 14:15 BP 134 / 59; Pulse 87; Resp 16; Temp 97.9(O); Pulse Ox 99% on R/A; Pain 5/10; ls4 ED Course: 13:00 Patient arrived in ED. sb2 13:00 Jose Eduardo Hernández MD is Private Physician. sb2 13:02 [facility]ks [facility]. jmm 13:02 Fan Kahn MD is Attending Physician. jmm 13:11 Triage completed. la1 13:11 Arm band placed on left wrist. la1 13:35 Radha Watkins, RN is Primary Nurse. ls4 13:42 Occult Blood Sent. ls4 15:08 Jose Eduardo Hernández MD is Referral Physician. jmm 15:14 No provider procedures requiring assistance completed. ls4 Administered Medications: 13:50 Drug: NS 0.9% 1000 ml Route: IV; Rate: 1 bolus; Site: left antecubital; ls4 15:12 Follow up: IV Status: Completed infusion; IV Intake: 1000ml ls4 15:10 Drug: K-Lyte Effervescent Tablet 50 mEq Route: PO; rv Intake: 15:12 IV: 1000ml; Total: 1000ml. ls4 Outcome: 15:08 Discharge ordered by . [facility] 15:15 Discharged to home via wheelchair, with family. ls4 15:15 Condition: stable 15:15 Discharge instructions given to patient, family, Instructed on discharge instructions, follow up and referral plans. medication usage, safety practices, Demonstrated understanding of instructions, follow-up care, medications. 15:21 Patient left the ED. ls4 Signatures: Aleks Mary PA PA jmm Attema, Lee, RN RN la1 Jenny Schulz sb2 Talha Daley RN RN Radha Matos RN RN ls4
--- NOTE | 2018-01-30 15:09 | EDPHYS ---
Physician Documentation [facility] Name: Coreen Chu Age: 72 yrs Sex: Female : 1945 Arrival Date: 01/30/2018 Time: 13:00 Bed 26 Private MD: Jose Eduardo Hernández ED Physician Fan Kahn HPI: 01/30 13:27 This 72 yrs old Female presents to ER via Wheelchair with complaints of jmm Abnormal Lab Results. 13:27 Onset: The symptoms/episode began/occurred gradually. Associated signs and symptoms: jmm Pertinent negatives: chest pain, shortness of breath. This is a 72 year old female with a history of anemia, DM, HLP that presents to the ED due to concerns for worsening anemia. The patient was sent by Dr. Hernández for evaluation for GI bleed. Patient is currently on IV antibiotics for c.dif. . Historical: - Allergies: 13:11 Codeine; la1 - PMHx: 13:11 "Kidney problems"; Chronic pain; Diabetes - NIDDM; Hyperlipidemia; Hypertension; la1 Rheumatoid Arthritis; - Immunization history:: Adult Immunizations up to date. - Social history:: Smoking status: Patient/guardian denies using tobacco. - Ebola Screening: : No symptoms or risks identified at this time. ROS: 13:27 Constitutional: Negative for fever, chills, and weight loss, Eyes: Negative for injury, jmm pain, redness, and discharge, Cardiovascular: Negative for chest pain, palpitations, and edema, Respiratory: Negative for shortness of breath, cough, wheezing, and pleuritic chest pain. 13:27 : Negative for injury, bleeding, discharge, and swelling, MS/Extremity: Negative for injury and deformity, Skin: Negative for injury, rash, and discoloration, Neuro: Negative for headache, weakness, numbness, tingling, and seizure, Psych: Negative for depression, anxiety, suicide ideation, homicidal ideation, and hallucinations. 13:27 Abdomen/GI: Positive for diarrhea. 13:27 All other systems are negative. Exam: 13:27 Constitutional: This is a well developed, well nourished patient who is awake, alert, jmm and in no acute distress. Head/Face: atraumatic. Eyes: EOMI, no conjunctival erythema appreciated ENT: Moist Mucus Membranes Neck: Trachea midline, Supple Chest/axilla: Normal chest wall appearance and motion. Cardiovascular: Regular rate and rhythm. No edema appreciated Respiratory: Normal respirations, no respiratory distress appreciated Abdomen/GI: Non distended, soft Back: Normal ROM Skin: General appearance color normal MS/ Extremity: Moves all extremities, no obvious deformities appreciated, no edema noted to the lower extremities Neuro: Awake and alert, normal gait Psych: Behavior is normal, Mood is normal, Patient is cooperative and pleasant Vital Signs: 13:11 BP 136 / 52; Pulse 95; Resp 18; Temp 98.4; Pulse Ox 100% on R/A; la1 14:15 BP 134 / 59; Pulse 87; Resp 16; Temp 97.9(O); Pulse Ox 99% on R/A; Pain 5/10; ls4 MDM: 13:21 Patient medically screened. [facility] 15:08 Data reviewed: vital signs, nurses notes. Counseling: I had a detailed discussion with [facility] the patient and/or guardian regarding: the historical points, exam findings, and any diagnostic results supporting the discharge/admit diagnosis, lab results, the need for outpatient follow up, to return to the emergency department if symptoms worsen or persist or if there are any questions or concerns that arise at home. 22:07 ED course: I discussed the patient with Dr. Hernández whom will follow up with the patient. [facility] H/H and vitals signs appear stable. Guac showed trace blood. Patient has no abdominal pain, fever, or otherwise concerning findings in the ED. . 01/30 13:03 Order name: CBC with Diff [facility] 01/30 13:04 Order name: Occult Blood [facility] 01/30 13:05 Order name: BMP; Complete Time: 15:02 [facility] 01/30 13:31 Order name: Type And Screen [facility] 01/30 14:44 Order name: CBC Smear Scan EDMS Administered Medications: 13:50 Drug: NS 0.9% 1000 ml Route: IV; Rate: 1 bolus; Site: left antecubital; ls4 15:12 Follow up: IV Status: Completed infusion; IV Intake: 1000ml ls4 15:10 Drug: K-Lyte Effervescent Tablet 50 mEq Route: PO; rv Disposition: 18:00 Co-signature as Attending Physician, Fan Kahn MD. rn Disposition: 01/30/18 15:08 Discharged to Home. Impression: anemia, hypokalemia. - Condition is Stable. - Discharge Instructions: Anemia, Nonspecific, Hypokalemia. - Prescriptions for Prilosec 20 mg Oral Capsule - take 1 capsule by ORAL route once daily; 10 capsule. - Medication Reconciliation Form, Thank You Letter, Antibiotic Education, Prescription Opioid Use form. - Follow up: Jose Eduardo Hernández MD; When: 2 - 3 days; Reason: Recheck today's complaints, Continuance of care, Re-evaluation by your physician. Signatures: Dispatcher [employer] [facility] Aleks Mary PA PA Fan Frazier MD MD rn Lavelle Walter RN RN la1 Talha Daley RN RN rv Radha Watkins RN RN ls4 Corrections: (The following items were deleted from the chart) 15:06 15:00 TYPE AND SCREEN+[id number].LAB.BRZ ordered. [facility] 15:21 15:08 01/30/2018 15:08 Discharged to Home. Impression: anemia; hypokalemia. Condition ls4 is Stable. Forms are Medication Reconciliation Form, Thank You Letter, Antibiotic Education, Prescription Opioid Use. Follow up: Jose Eduardo Hernández; When: 2 - 3 days; Reason: Recheck today's complaints, Continuance of care, Re-evaluation by your physician. javier
[2018-01-30] MEDS ORDERED: POTASSIUM 25 MEQ EFFERV TAB ONE (15:14)
[2018-01-30 15:28] VITALS: BP 134/59; TEMP 97.9; O2SAT 99
[2018-01-30 15:30] LABS: Blood Morphology Comment NOT SEEN (NOT SEEN); Platelet Estimate DECR; Urine White Blood Cell Casts OK
== END 2018-01-30 15:21 | disposition home or self-care (01) ==
LOC: ER 12:56
DX: D64.9 Anemia, unspecified (principal); E87.6 Hypokalemia; I10 Essential (primary) hypertension; E11.9 Type 2 diabetes mellitus without complications; Z88.5 Allergy status to narcotic agent
CPT/HCPCS: 36415; 80048; 85025; 86850; 86900; 86901; 96360; 99283; J7030

== ENCOUNTER 2018-02-03 15:15 | Day surgery (SDC) | payer OTHER ==
--- OUTSIDE RECORDS SUMMARY | 2018-02-03 17:35 | XMS REPORT | Clinical Summary ---
:1945 Author Organization [facility] Address [address] [place] [address] Care Team Providers Name Role Phone Elsa De Los Santos DPM Primary Care Provider Allergies Not on File Medications Not on file Active Problems Not on file Encounters Date Type Specialty Care Team Description 01/15/2018 Outside Orders Elsa De Los Santos DPM after 02/02/2017 Social History Tobacco Use Types Packs/Day Years Used Date Never Assessed Sex Assigned at Date Recorded Not on file Job Start Date Occupation Industry Not on file Not on file Not on file Travel History Travel Start Travel End No recent travel history available. Last Filed Vital Signs Not on file Plan of Treatment Not on file Results Not on fileafter 02/02/2017 Insurance Payer Benefit Plan / Group Subscriber ID Type Phone Address [employer] xxxxxxxxxxxx
--- OUTSIDE RECORDS SUMMARY | 2018-02-03 17:35 | XMS REPORT ---
:1945 Author Organization [facility] Address [address] [place] [address] [address]. [address] [place] [address] Care Team Providers Name Role Phone DR DEMOND STEINBERG Unavailable Unavailable Problems This patient has no known problems. Allergies, Adverse Reactions, Alerts This patient has no known allergies or adverse reactions. Medications This patient has no known medications. Encounters Start End Encounter Admission Attending Care Care Encounter Date/Time Date/Time Type Type Clinicians Facility Department ID 2018-01-14 Inpatient C RAMIRO STEINBERG RAD [id number] 14:00:00 DEMOND QUINTERO
--- OUTSIDE RECORDS SUMMARY | 2018-02-03 17:37 | XMS REPORT | Clinical Summary ---
:1945 Author Organization [facility] Address [address] [place] [address] Care Team Providers Name Role Phone Elsa [...]
--- OUTSIDE RECORDS SUMMARY | 2018-02-03 17:37 | XMS REPORT ---
:1945 [facility] Address [address] [place] [address] [address]. [address] [place] [address] Care Team Providers Name Role Phone DR DEMOND STEINBERG Unavailable Unavailable Problems This patient has no known problems. Allergies, Adverse Reactions, Alerts This patient has no known allergies or adverse reactions. Medications This patient has no known medications. Encounters Start End Encounter Admission Attending Care Care Encounter Date/Time Date/Time Type Type Clinicians Facility Department ID 2018-01-14 Inpatient C RAMIRO STEINBERG RAD [id number] 14:00:00 DEMOND QUINTERO
[2018-02-04 07:56] VITALS: BMI 19.3
== END 2018-02-03 15:40 | disposition home or self-care (01) ==
LOC: PRE 15:15 → DS 15:15
PROVIDERS: ATTEND Internal Medicine
DX: Z45.2 Encounter for adjustment and management of vascular access device (principal)